=== PATIENT | male | born 1965 | race Caucasian/White ===

== ENCOUNTER → 2021-08-24 15:51 | Outpatient (BNVA) | payer OTHER, SELFPAY | PROVIDERS: Family Provider Internal Medicine; PCP Internal Medicine; Visit Provider Specialist | DX: M25.511 Pain in right shoulder (principal); M75.31 Calcific tendinitis of right shoulder | CPT/HCPCS: 73030 ==

== ENCOUNTER → 2021-09-01 09:43 | Outpatient (BNVA) | payer OTHER, SELFPAY | PROVIDERS: Family Provider Internal Medicine; PCP Internal Medicine; Visit Provider Orthopaedic Surgery | DX: M54.50 Low back pain, unspecified (principal) | CPT/HCPCS: 72110 ==

== ENCOUNTER → 2021-10-27 09:08 | Outpatient (BNVA) | payer OTHER, SELFPAY | PROVIDERS: Family Provider Internal Medicine; PCP Family Medicine; Referring Provider Orthopaedic Surgery; Visit Provider Anesthesiology Pain Medicine | DX: G89.29 Other chronic pain (principal); M48.062 Spinal stenosis, lumbar region with neurogenic claudication; M51.36 Other intervertebral disc degeneration, lumbar region; M47.816 Spondylosis without myelopathy or radiculopathy, lumbar region; M79.604 Pain in right leg; M79.605 Pain in left leg; Z98.890 Other specified postprocedural states; Z87.19 Personal history of other diseases of the digestive system; F17.290 Nicotine dependence, other tobacco product, uncomplicated | CPT/HCPCS: 99205 ==

== ENCOUNTER → 2021-11-14 12:56 | Outpatient (BNVA) | payer OTHER, SELFPAY | PROVIDERS: Family Provider Internal Medicine; PCP Family Medicine; Visit Provider Anesthesiology Pain Medicine | DX: G89.29 Other chronic pain (principal); F17.210 Nicotine dependence, cigarettes, uncomplicated; M47.816 Spondylosis without myelopathy or radiculopathy, lumbar region | CPT/HCPCS: 64493; 64494; 64495; J3490 ==

== ENCOUNTER → 2021-11-28 09:37 | Outpatient (BNVA) | payer OTHER, SELFPAY | PROVIDERS: Family Provider Internal Medicine; PCP Family Medicine; Visit Provider Anesthesiology Pain Medicine | DX: G89.29 Other chronic pain (principal); M48.062 Spinal stenosis, lumbar region with neurogenic claudication; M47.816 Spondylosis without myelopathy or radiculopathy, lumbar region; M51.36 Other intervertebral disc degeneration, lumbar region; M79.604 Pain in right leg; M79.605 Pain in left leg; Z98.890 Other specified postprocedural states; Z87.19 Personal history of other diseases of the digestive system; F17.290 Nicotine dependence, other tobacco product, uncomplicated | CPT/HCPCS: 99214 ==

== ENCOUNTER → 2021-12-05 13:55 | Outpatient (BNVA) | payer OTHER, SELFPAY | PROVIDERS: Family Provider Internal Medicine; PCP Family Medicine; Visit Provider Anesthesiology Pain Medicine | DX: G89.29 Other chronic pain (principal); M47.816 Spondylosis without myelopathy or radiculopathy, lumbar region | CPT/HCPCS: 64635; 64636; J1030 ==

== ENCOUNTER → 2021-12-15 11:41 | Outpatient (BNVA) | payer OTHER, SELFPAY | PROVIDERS: Family Provider Internal Medicine; PCP Family Medicine; Visit Provider Specialist | DX: M75.51 Bursitis of right shoulder (principal); Z71.89 Other specified counseling; M25.511 Pain in right shoulder; G89.29 Other chronic pain; F17.210 Nicotine dependence, cigarettes, uncomplicated | CPT/HCPCS: 20610; J1100; J2795; J3301 ==

== ENCOUNTER → 2021-12-19 14:55 | Outpatient (BNVA) | payer OTHER, SELFPAY | PROVIDERS: Family Provider Internal Medicine; PCP Family Medicine; Visit Provider Anesthesiology Pain Medicine | DX: G89.29 Other chronic pain (principal); M48.062 Spinal stenosis, lumbar region with neurogenic claudication; M47.816 Spondylosis without myelopathy or radiculopathy, lumbar region; M51.36 Other intervertebral disc degeneration, lumbar region; M79.604 Pain in right leg; M79.605 Pain in left leg; F17.290 Nicotine dependence, other tobacco product, uncomplicated; Z98.890 Other specified postprocedural states; Z87.19 Personal history of other diseases of the digestive system | CPT/HCPCS: 99213 ==

== ENCOUNTER → 2022-04-06 11:02 | Outpatient (BNVA) | payer OTHER, SELFPAY | PROVIDERS: Family Provider Internal Medicine; PCP Family Medicine; Visit Provider Specialist | DX: M75.51 Bursitis of right shoulder (principal); Z71.89 Other specified counseling | CPT/HCPCS: 20610; J1100; J2795; J3301 ==

== ENCOUNTER 2022-06-06 06:00 | Outpatient (RCR) | payer OTHER, SELFPAY | END 2022-06-26 23:59 | disposition home or self-care (01) | LOC: SOT 06:00 | PROVIDERS: Family Provider Internal Medicine; PCP Family Medicine; Visit Provider Family Medicine | DX: M79.645 Pain in left finger(s) (principal) | CPT/HCPCS: 97166 ==

== ENCOUNTER 2022-06-06 06:00 | Outpatient (RCR) | payer OTHER, SELFPAY | END 2022-06-26 23:59 | disposition home or self-care (01) | LOC: SPT 06:00 | PROVIDERS: Family Provider Internal Medicine; PCP Family Medicine; Visit Provider Family Medicine | DX: M25.542 Pain in joints of left hand (principal) | CPT/HCPCS: 97110; 97162 ==

== ENCOUNTER → 2022-06-19 09:54 | Outpatient (BNVA) | payer OTHER, SELFPAY | PROVIDERS: Family Provider Internal Medicine; PCP Family Medicine; Visit Provider Anesthesiology Pain Medicine | DX: G89.29 Other chronic pain (principal); M48.062 Spinal stenosis, lumbar region with neurogenic claudication; M47.816 Spondylosis without myelopathy or radiculopathy, lumbar region; M51.36 Other intervertebral disc degeneration, lumbar region; M79.604 Pain in right leg; M79.605 Pain in left leg; Z98.890 Other specified postprocedural states; Z87.19 Personal history of other diseases of the digestive system; F17.290 Nicotine dependence, other tobacco product, uncomplicated | CPT/HCPCS: 99214 ==

== ENCOUNTER → 2022-07-06 09:40 | Outpatient (BNVA) | payer OTHER, SELFPAY | PROVIDERS: Family Provider Internal Medicine; PCP Family Medicine; Visit Provider Specialist | DX: M75.51 Bursitis of right shoulder (principal); Z71.89 Other specified counseling | CPT/HCPCS: 20610; J1100; J2795; J3301 ==

== ENCOUNTER → 2022-07-11 14:57 | Outpatient (BNVA) | payer OTHER, SELFPAY | PROVIDERS: Family Provider Internal Medicine; PCP Family Medicine; Visit Provider Anesthesiology Pain Medicine | DX: G89.29 Other chronic pain (principal); M47.816 Spondylosis without myelopathy or radiculopathy, lumbar region | CPT/HCPCS: 64493; 64494; 64495; J1040; J3490 ==

== ENCOUNTER 2022-07-21 10:41 | Emergency (ER) | payer OTHER, SELFPAY ==
[2022-07-21 11:04] VITALS: BP 120/77; PULSE 81; RESP 16; TEMP 36.4; O2SAT 97
--- NOTE | 2022-07-21 11:09 | ECG_ITS ---
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 Measurements Intervals [place] Rate: 78 P: 71 [place]: 158 QRS: 48 QRSD: 93 T: 66 QT: 361 QTc: 413 Interpretive Statements SINUS RHYTHM Compared to ECG 10/29/2018 09:50:04 No significant changes Electronically Signed On 07-22-2022 11:06:25 BEVEL OPERATOR by Supa Childers M.D. [email or web address]/store/[id number] f
[2022-07-21 11:26] LABS: Basophils # 0.1 10^3/uL (0.0-0.1); Basophils % 0.5 %; Eosinophils # 0.1 10^3/uL (0.0-0.8); Eosinophils % 1.1 %; Hematocrit 44.6 % (42.0-52.0); Hemoglobin 15.2 g/dL (11.7-16.6); Lymphocytes # 2.3 10^3/uL (0.8-4.8); Mean Corpuscular HGB Conc 34.1 g/dL (30.0-36.0); Mean Corpuscular Hemoglobin 32.4 pg (28.0-34.0); Mean Corpuscular Volume 95.1 fl (80-94); Mean Platelet Volume 9.5 fL (7.4-10.4); Monocytes % 8.1 %; Neutrophils # 9.26 10^3/uL (1.8-7.7); Nucleated Red Blood Cells % 0 %; Platelet Count 267 10^3/cmm (130-400); Red Blood Count 4.69 10^6/uL (4.1-5.3); Red Cell Distribution Width 12.7 % (12.1-15.1); White Blood Count 12.9 10^3/uL (4.0-10.0)
[2022-07-21 11:43] LABS: Alanine Aminotransferase 23 U/L (0-41); Albumin Level 4.1 g/dL (3.5-5.2); Alkaline Phosphatase 82 U/L (40-130); Anion Gap 13.1 (5-19); Aspartate Amino Transferase 19 U/L (0-40); Blood Urea Nitrogen 20 mg/dL (6-20); Calcium 9.3 mg/dL (8.5-10.5); Carbon Dioxide 26 mmol/L (22-29); Chloride 104 mmol/L (98-107); Globulin 2.7 g/dL (1.3-4.6); Glomerular Filtration Rate 86.4 mL/min (90-130); Glucose 88 mg/dL (65-115); Osmolality Calculated 290 mOsm/kg (285-295); Potassium 4.1 mmol/L (3.5-5.1); Sodium 139 mmol/L (136-145); Total Bilirubin 0.4 mg/dL (0.15-1.2); Total Protein 6.8 g/dL (6.6-8.7)
--- NOTE | 2022-07-21 12:28 | XR_ITS ---
WS: [id number] PORTABLE CHEST HISTORY: dyspnea/cough COMPARISON: 10/29/2018 Lungs are clear and well expanded. No pleural effusion or pneumothorax. Cardiac size: Normal. Mediastinum/Aorta: Normal mediastinum. No osseous abnormality seen. XR/XR chest 1V portable [id number] IMPRESSION: Unremarkable portable chest.
--- NOTE | 2022-07-21 12:34 | W.ED.CHESTPA ---
HPI - Chest Pain General: Chief Complaint: Chest Pain Stated Complaint: chest pain Time Seen by Provider: 07/21/22 11:49 Source: patient Mode of arrival: ambulatory History of Present Illness: 57-year-old male presents emergency room with complaint of substernal chest pain radiating to his back at most it was a 2/10. No associated shortness of breath is not previously had episodes he has not noticed anything that exacerbates or relieves. No recent illness cough cold fever sweats chills or shortness of breath. Denies any abdominal pain dysuria urgency or frequency. No fever. The time I seen the patient he said all the symptoms have resolved. No known history of coronary artery disease. MD complaint: chest discomfort Onset (ago): minute(s) Timing of current episode: episodic Prior episodes: No Onset: during rest Pain location: left chest Pain radiation: back Severity: mild Quality: tightness Relieving factors: nothing Exacerbating factors: nothing Associated symptoms: Deny abdominal pain, diaphoresis, dyspnea, fever(s), leg edema, nausea, palpitations, sense of impending doom, syncope or vomiting Review of Systems Const: Denies: fever(s), chills or diaphoresis ENMT: Denies: throat pain, ear or mastoid pain, nasal discharge or nasal congestion Card: Reports: chest pain; Denies: palpitations, irregular heart rhythm, edema, swelling of feet/ankles, syncope or orthopnea Resp: Denies: dyspnea GI: Denies: abdominal pain, nausea or vomiting : Denies: flank pain, dysuria, urinary frequency or urinary urgency Skin/Breast: Denies: rash or pruritus PFSH ED PFSH: Medical History Chronic back pain Chronic right shoulder pain Hypertension Lumbar stenosis with neurogenic claudication Social History Smoking and tobacco status: current some day smoker Alcohol intake: never History of recent travel: No Physical Exam Const: GENERAL APPEARANCE: cooperative and comfortable ORIENTATION/CONSCIOUSNESS: Yes awake, Yes oriented to person, Yes oriented to place and Yes oriented to time HENMT: COMMON NORMALS: normocephalic, atraumatic and hearing grossly normal bilaterally HEAD & SCALP: normocephalic and atraumatic Resp: COMMON NORMALS: normal respiratory effort, No retractions, No use of accessory muscles and clear to auscultation bilaterally AUSCULTATION: clear to auscultation bilaterally Cardio: COMMON NORMALS: regular rate, regular rhythm and No murmurs present (Cardio) RATE: regular rate RHYTHM: regular rhythm GI: COMMON NORMALS: Soft to palpation and No hepatosplenomegaly present AUSCULTATION: Yes normoactive bowel sounds PALPATION: Yes Soft to palpation, No Tenderness to palpation present (GI), No Guarding due to palpation present (GI) and Yes No hepatosplenomegaly present Extremity: COMMON NORMALS: normal to inspection, capillary refill normal, no clubbing, cyanosis or edema, no calf tenderness and no pedal edema Neuro: SENSORIUM/ORIENTATION: Yes oriented to person, Yes oriented to place and Yes oriented to time Skin: COMMON NORMALS: no rashes or lesions noted GENERAL SKIN EXAM: no rashes or lesions noted Course Vital Signs: Vital signs: Vital Signs Temperature 97.5 F L 07/21/22 11:04 Pulse Rate 92 07/21/22 15:30 Respiratory Rate 14 07/21/22 15:30 Blood Pressure 117/94 07/21/22 15:30 Pulse Oximetry 98 07/21/22 15:30 Oxygen Delivery Me thod 07/21/22 15:30 MDM - Chest Pain Medical Decision Making No acute changes on EKG. Troponin delta is negative. Patient vies continue lisinopril check with thiazide start baby aspirin daily and will set up outpatient Lexiscan sestamibi stress test. Return if is further chest discomfort. Medical Records I reviewed the patient's medical records. Lab Data I reviewed the patient's lab results. 07/21/22 11:23 07/21/22 11:23 Radiology Impressions Chest X-Ray 07/21/22 12:28 IMPRESSION: Unremarkable portable chest. Laboratory Results WBC 12.9 10^3/uL (4.0-10.0) H 07/21/22 11: RBC 4.69 10^6/uL (4.1-5.3) 07/21/22 11:23 Hgb 15.2 g/dL (11.7-16.6) 07/21/22 11: Hct 44.6 % (42.0-52.0) 07/21/22 11:23 MCV 95.1 fl (80-94) H 07/21/22 11:23 MCH 32.4 pg (28.0-34.0) 07/21/22 11:23 MCHC 34.1 g/dL (30.0-36.0) 07/21/22 11:23 RDW 12.7 % (12.1-15.1) 07/21/22 11:23 Plt Count 267 10^3/cmm (130-400) 07/21/22 11:23 MPV 9.5 fL (7.4-10.4) 07/21/22 11:23 Neut % (Auto) 72.0 % 07/21/22 11:23 Lymph % (Auto) 18.0 % 07/21/22 11:23 [place] % (Auto) 8.1 % 07/21/22 11:23 Eos % (Auto) 1.1 % 07/21/22 11:23 Baso % (Auto) 0.5 % 07/21/22 11:23 Neut # (Auto) 9.26 10^3/uL (1.8-7.7) H 07/21/22 11:23 Lymph # (Auto) 2.3 10^3/uL (0.8-4.8) 07/21/22 11:23 [place] # (Auto) 1.0 10^3/uL (0.2-0.9) H 07/21/22 11:23 Eos # (Auto) 0.1 10^3/uL (0.0-0.8) 07/21/22 11:23 Baso # (Auto) 0.1 10^3/uL (0.0-0.1) 07/21/22 11:23 Nucleated RBC % (auto) 0 % 07/21/22 11:23 Nucleated RBCs # 0.0 /100WBC 07/21/22 11:23 Sodium 139 mmol/L (136-145) 07/21/22 11:23 Potassium 4.1 mmol/L (3.5-5.1) 07/21/22 11:23 Chloride 104 mmol/L (98-107) 07/21/22 11:23 Carbon Dioxide 26 mmol/L (22-29) 07/21/22 11:23 Anion Gap 13.1 (5-19) 07/21/22 11:23 BUN 20 mg/dL (6-20) 07/21/22 11:23 Creatinine 0.9 mg/dL (0.7-1.2) 07/21/22 11:23 GFR Calculation 86.4 mL/min (90-130) L 07/21/22 11:23 Glucose 88 mg/dL (65-115) 07/21/22 11:23 Calculated Osmolality 290 mOsm/kg (285-295) 07/21/22 11:23 Calcium 9.3 mg/dL (8.5-10.5) 07/21/22 11:23 Total Bilirubin 0.4 mg/dL (0.15-1.2) 07/21/22 11:23 AST 19 U/L (0-40) 07/21/22 11:23 ALT 23 U/L (0-41) 07/21/22 11:23 Alkaline Phosphatase 82 U/L (40-130) 07/21/22 11:23 Troponin T Baseline 9 ng/L (0-15) 07/21/22 11:27 Troponin T 120 Minute 8.15 ng/L (0-15) 07/21/22 14:15 Delta Troponin T -0.85 ABS# (0-10) L 07/21/22 14:15 Total Protein 6.8 g/dL (6.6-8.7) 07/21/22 11:23 Albumin 4.1 g/dL (3.5-5.2) 07/21/22 11:23 Globulin 2.7 g/dL (1.3-4.6) 07/21/22 11:23 Discharge Plan Discharge Patient Disposition: Home Clinical Impression: Atypical chest pain Condition: Stable Prescriptions: New aspirin 81 mg tablet,delayed release (DR/EC) 81 mg PO DAILY Qty: 30 0RF No Action lisinopril-hydrochlorothiazide 10-12.5 mg tablet 1 tab PO DAILY sildenafil 50 mg tablet 50 mg PO DAILY PRN (Reason: Erectile Dysfunction) Rx Instructions: administer 30 minutes to 4 hours before activity Discharge Orders: Discharge ED (Routine); Ordered 07/21/22 Ordered By: Tomas Greer Referrals: Ema Sutton MD [Primary Care Provider] - Discharge Diet: Usual diet Discharge Activity: Resume usual activity Patient Instructions: Opioid Safety, Pain Management Activity Restrictions/Additional Instructions: You were seen today for chest pain. Your EKG and cardiac enzymes were negative. Case management will call to set up a stress test as an outpatient in the meantime would advise you take baby aspirin daily return if you have further problems. Coding Level of Care Code ED Skull Grinder for Eddie Fwd Exam Detailed
[2022-07-21] MEDS: aspirin 81 mg Chew Tablet 324 MG PO (12:37)
[2022-07-21 12:59] LABS: Troponin(5th) Baseline 9 ng/L (0-15)
--- NOTE | 2022-07-21 13:10 | PC.PHAR ---
[facility] CLOS[facility]- PT WAS ABLE TO VERIFY HOME MEDICATIONS
[2022-07-21 13:57] VITALS: BP 107/78; PULSE 84; RESP 15; O2SAT 98
--- NOTE | 2022-07-21 14:26 | ECG_ITS ---
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 Measurements Intervals [place] Rate: 92 P: 71 [place]: 159 QRS: 69 QRSD: 99 T: 68 QT: 363 QTc: 449 Interpretive Statements SINUS RHYTHM Compared to ECG 07/21/2022 11:09:25 No significant changes Electronically Signed On 07-22-2022 11:10:16 WELL SERVICE DERRICK WORKER by Supa Childers M.D. [email or web address] [email or web address] olive branch hospitalRegional Diagnostic Laboratoriespromedica flower [facility].[employer]/store/OM/[id number]
[2022-07-21 14:51] LABS: Troponin 5 2HR 8.15 ng/L (0-15)
[2022-07-21 14:56] LABS: Troponin 5 2HR Delta -0.85 ABS# (0-10)
[2022-07-21 15:30] VITALS: BP 117/94; PULSE 92; RESP 14; O2SAT 98
--- NOTE | 2022-07-26 07:17 | DCPLANNER ---
Addendum entered by Britt Reich 08/03/22 16:12: catering manager received the following message from the heart care clinic regarding follow up appointment: Spoke with patient and patient stated he did not want to be seen. Thank you! Original Note: Case rosalva had message to schedule an outpatient stress test for patient. The patient has [facility] insurance, so the stress test cannot be ordered from the ER. catering manager sent patients information to the front office staff at [facility] for a follow up appointment to be scheduled. Patients information will be printed and reviewed. Clinic will call patient with appointment information. catering manager will send patients information to Kate with [facility], for the authorization process can be started.
== END 2022-07-21 15:25 | disposition home or self-care (01) ==
PROVIDERS: Physician Assistant; Emergency Provider Family Medicine; PCP Family Medicine
DX: R07.89 Other chest pain (principal); I10 Essential (primary) hypertension
CPT/HCPCS: 36415; 71045; 80053; 84484; 85025; 93005; 99285

== ENCOUNTER 2022-08-08 14:15 | Emergency (ER) | payer OTHER, SELFPAY ==
[2022-08-08 14:16] VITALS: BP 151/100; PULSE 106; RESP 17; TEMP 36.8; O2SAT 95; BMI 31.6
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
[2022-08-08] MEDS: ketorolac 30 mg/mL INJ IVP (15:38)
[2022-08-08 15:44] LABS: Basophils # 0.1 10^3/uL (0.0-0.1); Basophils % 0.6 %; Eosinophils # 0.2 10^3/uL (0.0-0.8); Eosinophils % 1.9 %; Hematocrit 44.7 % (42.0-52.0); Hemoglobin 15.4 g/dL (11.7-16.6); Lymphocytes # 2.3 10^3/uL (0.8-4.8); Lymphocytes % 23.9 %; Mean Corpuscular HGB Conc 34.5 g/dL (30.0-36.0); Mean Corpuscular Hemoglobin 32.6 pg (28.0-34.0); Mean Corpuscular Volume 94.5 fl (80-94); Mean Platelet Volume 9.8 fL (7.4-10.4); Monocytes # 0.7 10^3/uL (0.2-0.9); Monocytes % 6.8 %; Neutrophils # 6.32 10^3/uL (1.8-7.7); Neutrophils % 66.4 %; Nucleated Red Blood Cells % 0 %; Platelet Count 262 10^3/cmm (130-400); Red Blood Count 4.73 10^6/uL (4.1-5.3); White Blood Count 9.5 10^3/uL (4.0-10.0)
[2022-08-08 15:47] VITALS: BP 122/83; PULSE 91; O2SAT 97
[2022-08-08 16:09] LABS: Alanine Aminotransferase 24 U/L (0-41); Albumin Level 4.4 g/dL (3.5-5.2); Alkaline Phosphatase 87 U/L (40-130); Anion Gap 15.1 (5-19); Blood Urea Nitrogen 17 mg/dL (6-20); Calcium 9.5 mg/dL (8.5-10.5); Carbon Dioxide 26 mmol/L (22-29); Chloride 105 mmol/L (98-107); Globulin 2.7 g/dL (1.3-4.6); Glomerular Filtration Rate 86.4 mL/min (90-130); Glucose 98 mg/dL (65-115); Osmolality Calculated 296 mOsm/kg (285-295); Potassium 4.1 mmol/L (3.5-5.1); Sodium 142 mmol/L (136-145); Total Bilirubin 0.2 mg/dL (0.15-1.2); Total Protein 7.1 g/dL (6.6-8.7)
[2022-08-08 16:17] LABS: Aspartate Amino Transferase 18 U/L (0-40)
== END 2022-08-08 16:52 | disposition home or self-care (01) ==
PROVIDERS: Emergency Provider Family Medicine; PCP Family Medicine
DX: Z04.1 Encounter for examination and observation following transport accident (principal); I10 Essential (primary) hypertension; F17.210 Nicotine dependence, cigarettes, uncomplicated; V89.2XXA Person injured in unspecified motor-vehicle accident, traffic, initial encounter
CPT/HCPCS: 70450; 72040; 80053; 85025; 96374; 99285; J1885

== ENCOUNTER → 2022-10-11 15:00 | Outpatient (BNVA) | payer OTHER, SELFPAY | PROVIDERS: PCP Family Medicine; Visit Provider Specialist | DX: M75.51 Bursitis of right shoulder (principal) | CPT/HCPCS: 20610; J1100; J2795; J3301 ==

== ENCOUNTER 2022-11-17 10:07 | Emergency (ER) | payer OTHER, SELFPAY ==
[2022-11-17 10:16] VITALS: BMI 33.9
[2022-11-17 10:17] VITALS: BP 134/87; PULSE 88; RESP 18; O2SAT 96
--- NOTE | 2022-11-17 10:31 | ECG_ITS ---
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 Measurements Intervals [place] Rate: 74 P: 72 MD: 176 QRS: 43 QRSD: 97 T: 63 QT: 366 QTc: 406 Interpretive Statements SINUS RHYTHM WITH SINUS ARRHYTHMIA INCOMPLETE RIGHT BUNDLE BRANCH BLOCK [90+ ms QRS DURATION, TERMINAL R IN V1/V2, 40+ ms S IN I/aVL/V4/V5/V6] Compared to ECG 07/21/2022 14:26:11 Incomplete right bundle-branch block now present Electronically Signed On 11-17-2022 23:02:03 CDT by Enedelia Hamilton M.D. [email or web address] [email or web address] Corporation of [email or web address] pickerington [facility].[employer]/store/OM/[id number]
--- NOTE | 2022-11-17 11:39 | W.ED.ANXIETY ---
HPI - Anxiety General: Chief Complaint: Anxiety Stated Complaint: Anxiety, irregular BP Time Seen by Provider: 11/17/22 10:39 History of Present Illness: Patient is a 57-year-old male who comes to the ED with chest pressure/tightness. Patient was referred over here to the ED by [facility]. Symptoms started yesterday evening while sitting, but was in a mental health therapy session. He started developing chest tightness and chest pressure, shortness of breath and palpitations. He states he has had these symptoms before but not frequently. Patient endorses having a lot of stress and anxiety going on in his life currently. Symptoms continued through the night and into this morning. [facility] ED but gave him a dose of 325 mg of aspirin before he left. Here in the ED patient says he still feels a little bit of the chest tightness and pressure but denies any shortness of breath or heart palpitations. Patient is not on any as needed anxiety meds. Associated symptoms: Reports chest pain and palpitations; Deny chills, fever(s), headache(s), nausea or vomiting Review of Systems Const: Denies: fever(s), chills or fatigue Eyes: Denies: change in vision or eye discomfort ENMT: Denies: throat pain, odynophagia, nasal discharge or nasal congestion Card: Reports: chest pain and palpitations; Denies: edema, swelling of feet/ankles, dyspnea on exertion or orthopnea Resp: Reports: dyspnea; Denies: productive cough or non-productive cough GI: Denies: abdominal pain, nausea, vomiting, diarrhea, constipation or hematochezia : Denies: flank pain, difficulty urinating, dysuria or hematuria Musc: Denies: neck pain, back pain or extremity swelling Skin/Breast: Denies: rash or new lesions Neuro: Denies: headache(s), numbness in extremities or weakness in extremities Psych: Reports: anxiety PFSH ED PFSH: Medical History Chronic back pain Chronic right shoulder pain Hypertension Lumbar stenosis with neurogenic claudication Social History Smoking and tobacco status: current some day smoker Alcohol intake: never Physical Exam Const: COMMON NORMALS: patient oriented x3 HENMT: COMMON NORMALS: normocephalic HEAD & SCALP: normocephalic MOUTH: Normal oral and palatal mucosa present THROAT: posterior oropharynx normal and uvula midline Neck/C-Spine: COMMON NORMALS: supple GENERAL: Yes normal visual inspection Resp: COMMON NORMALS: normal respiratory effort, No retractions, No use of accessory muscles and clear to auscultation bilaterally AUSCULTATION: clear to auscultation bilaterally Cardio: COMMON NORMALS: regular rate, regular rhythm, S1 normal heart sound present, S2 normal heart sound present, No gallops present (Cardio), No clicks present (Cardio), No murmurs present (Cardio) and Peripheral pulses 2+ throughout RATE: regular rate RHYTHM: regular rhythm HEART SOUNDS: S1 normal heart sound present and S2 normal heart sound present PERIPHERAL PULSES: Peripheral pulses 2+ throughout GI: COMMON NORMALS: Normal to inspection, nondistended, normoactive bowel sounds present, Soft to palpation, non-tender and no masses PALPATION: Yes Soft to palpation : COMMON NORMALS: Yes no CVA tenderness BLADDER/KIDNEY EXAM: Yes no CVA tenderness Back/Pelvis: COMMON NORMALS: no CVA tenderness Extremity: COMMON NORMALS: normal to inspection Neuro: COMMON NORMALS: patient oriented x3 GAIT: Yes Normal gait present Skin: GENERAL SKIN EXAM: dry skin Course Vital Signs: Vital signs: Vital Signs Pulse Rate 88 11/17/22 10:17 Respiratory Rate 18 11/17/22 10:17 Blood Pressure 134/87 11/17/22 10:17 Pulse Oximetry 96 11/17/22 10:17 Oxygen Delivery Me thod 11/17/22 10:17 MDM - Anxiety Medical Decision Making Patient is a 57-year-old male who comes to the ED with chest pressure/tightness. Patient was referred over here to the ED by [facility]. Symptoms started yesterday evening while sitting, but was in a mental health therapy session. He started developing chest tightness and chest pressure, shortness of breath and palpitations. He states he has had these symptoms before but not frequently. Patient endorses having a lot of stress and anxiety going on in his life currently. Symptoms continued through the night and into this morning. [facility] come here to the ED but gave him a dose of 325 mg of aspirin before he left. Here in the ED patient says he still feels a little bit of the chest tightness and pressure but denies any shortness of breath or heart palpitations. Patient is not on any as needed anxiety meds. Vitals are stable. Exam patient is benign. Labs are unremarkable. Troponin negative and EKG showed no acute findings. Patient likely is having acute anxiety that is causing his chest pain and shortness of breath. He was stable for discharge home and told to follow-up with his PCP within the next week for reevaluation. I offered to send patient home with some acute anxiety medications and he refused any. Return to ED precautions given. Patient understood and agreed with plan. Lab Data I reviewed the patient's lab results. 11/17/22 12:05 11/17/22 12:05 Laboratory Results WBC 8.9 10^3/uL (4.0-10.0) 11/17/22 12:05 RBC 4.59 10^6/uL (4.1-5.3) 11/17/22 12:05 Hgb 14.5 g/dL (11.7-16.6) 11/17/22 12:05 Hct 44.2 % (42.0-52.0) 11/17/22 12:05 MCV 96.3 fl (80-94) H 11/17/22 12:05 MCH 31.6 pg (28.0-34.0) 11/17/22 12:05 MCHC 32.8 g/dL (30.0-36.0) 11/17/22 12:05 RDW 12.6 % (12.1-15.1) 11/17/22 12:05 Plt Count 256 10^3/cmm (130-400) 11/17/22 12:05 MPV 9.8 fL (7.4-10.4) 11/17/22 12:05 Neut % (Auto) 63.9 % 11/17/22 12:05 Lymph % (Auto) 24.2 % 11/17/22 12:05 Tarrant % (Auto) 8.9 % 11/17/22 12:05 Eos % (Auto) 1.9 % 11/17/22 12:05 Baso % (Auto) 0.7 % 11/17/22 12:05 Neut # (Auto) 5.70 10^3/uL (1.8-7.7) 11/17/22 12:05 Lymph # (Auto) 2.2 10^3/uL (0.8-4.8) 11/17/22 12:05 Tarrant # (Auto) 0.8 10^3/uL (0.2-0.9) 11/17/22 12:05 Eos # (Auto) 0.2 10^3/uL (0.0-0.8) 11/17/22 12:05 Baso # (Auto) 0.1 10^3/uL (0.0-0.1) 11/17/22 12:05 Nucleated RBC % (auto) 0 % 11/17/22 12:05 Nucleated RBCs # 0.0 /100WBC 11/17/22 12:05 Sodium 141 mmol/L (136-145) 11/17/22 12:05 Potassium 4.5 mmol/L (3.5-5.1) 11/17/22 12:05 Chloride 106 mmol/L (98-107) 11/17/22 12:05 Carbon Dioxide 25 mmol/L (22-29) 11/17/22 12:05 Anion Gap 14.5 (5-19) 11/17/22 12:05 BUN 13 mg/dL (6-20) 11/17/22 12:05 Creatinine 0.8 mg/dL (0.7-1.2) 11/17/22 12:05 GFR Calculation 98.9 mL/min (90-130) 11/17/22 12:05 Glucose 77 mg/dL (65-115) 11/17/22 12:05 Calculated Osmolality 291 mOsm/kg (285-295) 11/17/22 12:05 Calcium 9.0 mg/dL (8.5-10.5) 11/17/22 12:05 Troponin T Baseline 8 ng/L (0-15) 11/17/22 12:05 EKG Data EKG 1: EKG interpretation date: 11/17/22 Interpretation: Normal sinus rhythm, 74 bpm, no ST segment elevation or depression seen. Discharge Plan Discharge Patient Disposition: Home Clinical Impression: Acute anxiety Condition: Stable Prescriptions: No Action metoprolol succinate 50 mg Tablet Extended Release 24 Hr 50 mg PO DAILY Discharge Orders: Discharge ED (Routine); Ordered 11/17/22 Ordered By: Tommie Rees Referrals: Ema Sutton MD [Primary Care Provider] - Discharge Diet: Regular Discharge Activity: Increase activity as tolerated Patient Instructions: Noncardiac Chest Pain (ED), Anxiety (ED) Activity Restrictions/Additional Instructions: Follow-up with medical provider as directed in the next 3 to 5 days for reevaluation. Continue taking all home medications as prescribed. Return to the ER or your medical provider if condition worsens. Please read and understand discharge instructions. Thank you for choosing [facility] for your healthcare needs today. Please realize this is an emergency room and that we are providing you with a medical screening exam and this may not be complete and all inclusive of all the testing and or work up that you may need to determine your ailment or severity of your illness. It is very important that you follow up as instructed or that you return to the Emergency Department should you have concerns or if your condition changes or worsens in any way. Coding Level of Care Code ED Tank Riveter for Eddie May
[2022-11-17 12:10] LABS: Basophils # 0.1 10^3/uL (0.0-0.1); Basophils % 0.7 %; Eosinophils # 0.2 10^3/uL (0.0-0.8); Eosinophils % 1.9 %; Hematocrit 44.2 % (42.0-52.0); Hemoglobin 14.5 g/dL (11.7-16.6); Lymphocytes # 2.2 10^3/uL (0.8-4.8); Lymphocytes % 24.2 %; Mean Corpuscular HGB Conc 32.8 g/dL (30.0-36.0); Mean Corpuscular Hemoglobin 31.6 pg (28.0-34.0); Mean Corpuscular Volume 96.3 fl (80-94); Mean Platelet Volume 9.8 fL (7.4-10.4); Monocytes # 0.8 10^3/uL (0.2-0.9); Monocytes % 8.9 %; Neutrophils % 63.9 %; Nucleated Red Blood Cells % 0 %; Platelet Count 256 10^3/cmm (130-400); Red Blood Count 4.59 10^6/uL (4.1-5.3); Red Cell Distribution Width 12.6 % (12.1-15.1); White Blood Count 8.9 10^3/uL (4.0-10.0)
[2022-11-17 12:30] LABS: Troponin(5th) Baseline 8 ng/L (0-15)
[2022-11-17 12:55] LABS: Blood Urea Nitrogen 13 mg/dL (6-20); Carbon Dioxide 25 mmol/L (22-29); Chloride 106 mmol/L (98-107); Glomerular Filtration Rate 98.9 mL/min (90-130); Glucose 77 mg/dL (65-115); Osmolality Calculated 291 mOsm/kg (285-295); Sodium 141 mmol/L (136-145)
[2022-11-17 13:06] LABS: Anion Gap 14.5 (5-19); Potassium 4.5 mmol/L (3.5-5.1)
== END 2022-11-17 12:48 | disposition home or self-care (01) ==
PROVIDERS: Emergency Provider Physician Assistant; PCP Family Medicine
DX: F41.9 Anxiety disorder, unspecified (principal); I10 Essential (primary) hypertension; F17.200 Nicotine dependence, unspecified, uncomplicated
CPT/HCPCS: 80048; 84484; 85025; 93005; 99284

== ENCOUNTER 2022-12-05 06:30 | Outpatient (CLI) | payer OTHER, SELFPAY ==
--- NOTE | 2022-12-05 | US_ITS ---
WS: [id number] RENAL ULTRASOUND REASON FOR EXAM: LABILE BP COMPARISON: None available. ORDER DATE: 12/05/2022 7:16 AM TECHNIQUE: Grayscale and Doppler ultrasound examination of the kidneys. FINDINGS: Right kidney: Right kidney measures 11.4 cm x 6.1 cm x 5.7 cm. Cortical width 17 mm Left kidney: Left kidney measures 12.0 cm x 5.1 cm x 7.1 cm. Cortical width 16 mm Duplex vascular imaging demonstrated satisfactory renal blood flow bilaterally. The bladder was decompressed but there is suggestion of bladder wall thickening Limited imaging the prostate demonstrates no specific abnormality. US/US renal BI* [id number] IMPRESSION: Unremarkable study.
--- NOTE | 2022-12-05 | USCV_ITS ---
Jc Forte Age: 57 Gender: M : 1965 Exam Date: 12/05/2022 07:19 Ordering Phys: Ema Sutton MD Technologist: Omar Wise Exam Location: [facility] [place] Indication: Labile BP Aortic Velocity @ SMA (cm/s) 91.5 RIGHT KIDNEY LEFT KIDNEY Velocity (cm/s) Velocity (cm/s) Sys/Hassan Sys/Hassan Resistive Index Resistive Index 46.8 / 16.4 0.69 Proximal Renal Artery 48.4 / 18.8 0.61 64.5 / 20.7 0.73 Mid Renal Artery 68.0 / 19.4 0.71 52.6 / 35.4 0.33 Distal Renal Artery 74.3 / 26.4 0.64 40.5 / 17.5 0.56 Hilar 36.6 / 14.7 0.59 28.0 / 10.2 0.63 Upper Pole 44.6 / 19.0 0.57 20.6 / 6.3 0.70 Mid Pole 28.9 / 8.9 0.69 16.7 / 7.5 0.55 Lower Pole 15.3 / 7.7 0.50 1.00 Renal Aortic Ratio 0.81 Accleration Index (cm/sec2) 236.00 Hilar 257.00 178.00 Upper Pole 243.00 126.00 Mid Pole 89.00 104.00 Lower Pole 83.00 11.4 Kidney Length (mm) 12.0 FINDINGS Comparison: none. Normal size kidneys, no hydronephrosis. No evidence of abdominal aortic aneurysm. There is no evidence of hemodynamically significant right renal artery stenosis. There is no evidence of hemodynamically significant left renal artery stenosis. CONCLUSIONS No sonographic evidence of hemodynamically significant renal artery stenosis bilaterally. Dr. Beata Oliver DO (Electronically Signed) Final Date: 05 December 2022 12:56 S
== END 2022-12-05 06:31 | disposition home or self-care (01) ==
LOC: RAD 06:30
PROVIDERS: PCP Family Medicine; Visit Provider Family Medicine
DX: I10 Essential (primary) hypertension (principal)
CPT/HCPCS: 76770; 93975

== ENCOUNTER → 2022-12-12 14:56 | Outpatient (BNVA) | payer OTHER, SELFPAY | PROVIDERS: PCP Family Medicine; Visit Provider Internal Medicine Cardiovascular Disease | DX: R07.9 Chest pain, unspecified (principal); I10 Essential (primary) hypertension; F41.9 Anxiety disorder, unspecified; F17.210 Nicotine dependence, cigarettes, uncomplicated | CPT/HCPCS: 99204 ==

== ENCOUNTER → 2023-01-10 15:39 | Outpatient (BNVA) | payer OTHER, SELFPAY | PROVIDERS: PCP Family Medicine; Visit Provider Specialist | DX: M75.51 Bursitis of right shoulder (principal); Z71.89 Other specified counseling | CPT/HCPCS: 20610; J1100; J2795; J3301 ==

== ENCOUNTER 2023-01-23 12:31 | Outpatient (CLI) | payer OTHER, SELFPAY ==
[2023-01-23 13:00] VITALS: BMI 33.5
--- NOTE | 2023-01-23 13:05 | ECG_ITS ---
[facility] Test Date: 2023-01-23 Pat Name: Jc Forte Department: Room: Gender: Male Park Interpretive Ranger: : 1965 Requested By: Enedelia Hamilton Order Number: [id number] Tatianna MD: Monika Rocha M.D. Interpretive Statements NAME OF STUDY: TREADMILL STRESS ECHOCARDIOGRAM INDICATION: Chest Pain PROCEDURE: At the baseline, the patient's blood pressure was 128/67 mm Hg with a heart rate of 77 bpm oxygen saturation of 94%. The baseline electrocardiogram showed normal sinus rhythm, right axis deviation. Possible old anteroseptal infarct. The patient exercised for 5 minutes and 6 seconds on a standard Leonard protocol. Patient attained a maximum heart rate of 140 beats per minute(86% of the maximum predicted heart rate) with a blood pressure at the peak exercise of 162/56 mm Hg. The EKG at the peak exercise revealed sinus tachycardia with no significant ST-T wave changes. Patient did not have any chest pain or any significant EKG changes with the exercise During the recovery phase, there were no new changes. Blood pressure at the end of the recovery phase was 139/82 mm Hg with a heart rate of 89 beats per minute saturation of 95%. Echocardiographic pictures were taken at the baseline, immediately following the peak exercise and during the recovery phase. CONCLUSION: 1. Normal EKG response to treadmill exercise. 2. No exercise-induced chest pain or cardiac arrhythmia 3. Normal blood pressure normal response to exercise. 4. Good exercise tolerance, attained a maximum of 7 METs 5. Please see separate report for the echocardiographic response to exercise. Electronically Signed On 02-02-2023 14:10:11 CDT by Monika Rocha M.D. [email or web address]
--- NOTE | 2023-01-23 13:05 | USCV_ITS ---
Jc Forte Age: 57 Gender: M : 1965 Exam Date: 01/23/2023 13:24 Ordering Phys: Enedelia Hamilton MD ([email or web address]) Technologist: Deacon Becerra Exam Location: [facility] [place] Indication: cp Rhythm: Sinus Patient History: Cardiac Medications: Medications in past 24 hours: Contrast: Stress Results Protocol: Modified Leonard Total dose(mL): Exercise Duration (min:sec): 5:06 METS: 7 Resting HR: 75 Resting BP: 128 / 67 Peak HR: 140 Peak BP: 162 / 83 Max Predicted HR: 161 87 % Max Predicted HR Target HR: 137 Double Product: 92012 Stress Summary: The patient's target heart rate was achieved BP Response: Normal Reason for Termination: Maximal effort/unable to continue Cardiac Symptoms: None ECG Analysis Resting ECG: Stress ECG: Arrhythmia: MEASUREMENTS (Male/Female) Normal Values FINDINGS PROCEDURE: At the baseline, the patient's blood pressure was 128/67 mmHg with a heart rate of 75 bpm. The patient exercised for 8 minutes and 6 seconds on a standard Leonard protocol. Patient attained a maximum heart rate of 140 beats per minute(87% of the maximum predicted heart rate) with a blood pressure at the peak exercise of 162/83 mm Hg. During the recovery phase, there were no new changes. Echocardiographic pictures were taken at the baseline, immediately following the peak exercise and during the recovery phase. Baseline echocardiogram: Normal left ventricular size and systolic function with ejection fraction estimated at 55%. No regional wall motion abnormalities. Normal right ventricle size and systolic function. Normal left and right atrial size. No pericardial effusion. No intracardiac masses. Peak exercise echocardiogram: Normal augmentation of left ventricular systolic function with exercise. No new regional wall motion abnormalities. Recovery echocardiogram: Left ventricular systolic function normalizes. No regional wall motion abnormalities. CONCLUSIONS 1. This is a treadmill stress echocardiogram. 2. Fair exercise tolerance, attained a maximum of 7 METs. Double product of 22,680. 3. Normal blood pressure and heart rate response to exercise. 4. Normal echocardiographic response to exercise. 5. Normal EKG response to exercise. Please see separate report for the details of EKG portion of the study. Monika Rocha MD (Electronically Signed) Final Date: 02 February 2023 14:13 S
[2023-01-23 13:38] VITALS: BP 139/82; PULSE 87
== END 2023-01-23 12:32 | disposition home or self-care (01) ==
LOC: CDL 12:32
PROVIDERS: PCP Family Medicine; Visit Provider Internal Medicine Cardiovascular Disease
DX: R07.9 Chest pain, unspecified (principal)
CPT/HCPCS: 93017; 93350

== ENCOUNTER → 2023-03-29 08:57 | Outpatient (BNVA) | payer OTHER, SELFPAY | PROVIDERS: PCP Family Medicine; Referring Provider Family Medicine; Visit Provider Anesthesiology Pain Medicine | DX: M54.16 Radiculopathy, lumbar region (principal); G89.29 Other chronic pain; M48.062 Spinal stenosis, lumbar region with neurogenic claudication; M47.816 Spondylosis without myelopathy or radiculopathy, lumbar region; M51.36 Other intervertebral disc degeneration, lumbar region; Z98.890 Other specified postprocedural states; Z87.19 Personal history of other diseases of the digestive system | CPT/HCPCS: 99214 ==

== ENCOUNTER → 2023-04-11 15:44 | Outpatient (BNVA) | payer OTHER, SELFPAY | PROVIDERS: PCP Family Medicine; Visit Provider Specialist | DX: M75.51 Bursitis of right shoulder; M25.511 Pain in right shoulder; G89.29 Other chronic pain; Z71.89 Other specified counseling | CPT/HCPCS: 20610; J1100; J2795; J3301 ==

== ENCOUNTER 2023-05-14 13:39 | Outpatient (CLI) | payer OTHER, SELFPAY ==
--- NOTE | 2023-05-14 13:45 | MR_ITS ---
WS: [id number] MRI LUMBAR SPINE NONCONTRAST HISTORY: M54.16 - Radiculopathy, lumbar region COMPARISON: 03/11/2021 TECHNIQUE: Sagittal and axial multisequence imaging is submitted. C5-6 and C6-7 disc protrusions contact the ventral cervical cord. L4 anterolisthesis by 6 mm. No fractures or marrow edema. Mild disc base narrowing and desiccation at L5-S1. Conus terminates normally at L1-2 disc level. L1-L2: Mild facet joint arthritis. No high-grade stenosis. Very minimal facet arthritis. L2-L3: Mild annular disc bulging with a central annular fissure. Mild ligamentum flavum and facet art hritis. There is mild disc encroachment upon the subarticular recesses. Small amount of fluid in the RIGHT facet joint. L3-L4: Mild annular disc bulging with mild ligamentum flavum and facet arthritis. Mild encroachment u elliot the subarticular recesses. No high-grade stenosis. L4-L5: Diffuse annular disc bulging. Marked ligamentum flavum hypertrophy and facet arthritis. Fluid in the facet joints with mild widening of the facet joints. Severe central, bilateral subarticular re cess and moderate to severe foraminal stenosis. There is disc contacting the L4 and L5 nerve roots bi laterally. L5-S1: Mild diffuse annular disc bulging. Mild encroachment upon the ventral thecal sac and subarticu lar recesses. Moderate to severe bilateral foraminal stenosis. There is mild disc contact on the exit ing L5 nerve roots. RIGHT renal cyst 1.6 cm. IMPRESSION: 1. L4 grade 1 spondylolisthesis, 6 mm. 2. L4-5: Severe central, bilateral subarticular recess and moderate to severe foraminal stenosis. [place] nosis exacerbated by the L4 anterolisthesis. Disc contacts the L4 and L5 nerve roots. 3. L5-S1: Moderate to severe bilateral foraminal stenosis. 4. 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 Most significant at L4-5 and L5 -S1.
== END 2023-05-14 13:40 | disposition home or self-care (01) ==
PROVIDERS: PCP Family Medicine; Visit Provider Anesthesiology Pain Medicine
DX: M54.16 Radiculopathy, lumbar region (principal); M43.16 Spondylolisthesis, lumbar region; M48.07 Spinal stenosis, lumbosacral region; M47.817 Spondylosis without myelopathy or radiculopathy, lumbosacral region
CPT/HCPCS: 72148

== ENCOUNTER → 2023-05-23 15:10 | Outpatient (BNVA) | payer OTHER, SELFPAY | PROVIDERS: PCP Family Medicine; Visit Provider Specialist | DX: M25.551 Pain in right hip (principal) | CPT/HCPCS: 73502; 99213 ==

== ENCOUNTER 2023-06-20 15:59 | Outpatient (CLI) | payer OTHER, SELFPAY ==
--- NOTE | 2023-06-20 16:00 | MR_ITS ---
WS: [id number] EXAMINATION: MR hip RT wo con* [id number] ORDER DATE: 06/20/2023 5:09 PM COMPARISON: None. HISTORY: right hip pain CONTRAST: None. TECHNIQUE: Coronal STIR of the Pelvis. Coronal proton density, coronal T1, axial T2 fat sat, axial T1 , sagittal T2 fat sat, and sagittal T1 performed of the hip. FINDINGS: Moderate degenerative narrowing RIGHT hip. No acute fractures. No subchondral edema or avascular necr osis. No edema in the LEFT hip. RIGHT visualized pubic rami are normal in appearance. Trace soft tissue edema about the RIGHT greater trochanter can be seen with trochanteric bursitis. No fluid collections. Normal bone marrow signal i n the bony pelvis and sacrum. Mild degenerative changes at the pubic symphysis. Incidental small mau gn bone island or enchondroma RIGHT femoral head. No significant joint effusion. Mild degenerative arthritis sacroiliac joints. No inguinal lymphadenop athy. IMPRESSION: 1. Moderate degenerative narrowing RIGHT hip. No acute fractures. 2. No bone marrow edema or avascular necrosis. No significant joint effusion. 3. Trace soft tissue edema about the RIGHT greater trochanter can be seen with trochanteric bursitis . No fluid collections. 4. Normal bone marrow signal in the bony pelvis and sacrum.
== END 2023-06-20 16:00 | disposition home or self-care (01) ==
LOC: RAD 16:00
PROVIDERS: PCP Family Medicine; Visit Provider Specialist
DX: M16.11 Unilateral primary osteoarthritis, right hip (principal); M25.551 Pain in right hip
CPT/HCPCS: 73721

== ENCOUNTER → 2023-06-28 08:58 | Outpatient (BNVA) | payer OTHER, SELFPAY | PROVIDERS: PCP Family Medicine; Visit Provider Anesthesiology Pain Medicine | DX: G89.29 Other chronic pain; M48.062 Spinal stenosis, lumbar region with neurogenic claudication; F17.290 Nicotine dependence, other tobacco product, uncomplicated; M47.816 Spondylosis without myelopathy or radiculopathy, lumbar region; M51.36 Other intervertebral disc degeneration, lumbar region; Z98.890 Other specified postprocedural states; Z87.19 Personal history of other diseases of the digestive system; M43.16 Spondylolisthesis, lumbar region; M48.061 Spinal stenosis, lumbar region without neurogenic claudication | CPT/HCPCS: 99215 ==

== ENCOUNTER → 2023-07-05 14:56 | Outpatient (BNVA) | payer OTHER, SELFPAY | PROVIDERS: PCP Family Medicine; Visit Provider Anesthesiology Pain Medicine | DX: M54.16 Radiculopathy, lumbar region (principal); G89.29 Other chronic pain; M70.61 Trochanteric bursitis, right hip; M75.51 Bursitis of right shoulder; M25.551 Pain in right hip | CPT/HCPCS: 20610; 64483; 64484; 99214; J1100; J2795; J3301; J3490 ==

== ENCOUNTER → 2023-07-25 09:16 | Outpatient (BNVA) | payer OTHER, SELFPAY | PROVIDERS: PCP Family Medicine; Visit Provider Anesthesiology Pain Medicine | DX: G89.29 Other chronic pain; M70.61 Trochanteric bursitis, right hip; M75.51 Bursitis of right shoulder; M48.062 Spinal stenosis, lumbar region with neurogenic claudication; M47.816 Spondylosis without myelopathy or radiculopathy, lumbar region; M51.36 Other intervertebral disc degeneration, lumbar region; Z98.890 Other specified postprocedural states; Z87.19 Personal history of other diseases of the digestive system; M43.16 Spondylolisthesis, lumbar region; Y93.9 Activity, unspecified; Z71.89 Other specified counseling | CPT/HCPCS: 20610; 99214; J1100; J2795; J3301 ==

== ENCOUNTER → 2023-10-08 15:33 | Outpatient (BNVA) | payer OTHER, SELFPAY | PROVIDERS: PCP Family Medicine; Visit Provider Nurse Practitioner | DX: M75.51 Bursitis of right shoulder; M25.511 Pain in right shoulder; G89.29 Other chronic pain | CPT/HCPCS: 20610; 99213; J1100; J2795; J3301 ==

== ENCOUNTER 2023-10-31 12:49 | Outpatient (CLI) | payer OTHER, SELFPAY ==
--- NOTE | 2023-10-31 13:00 | MR_ITS ---
WS: [id number] MRI RIGHT SHOULDER HISTORY: shoulder pain COMPARISON: Radiographs 08/24/2021 TECHNIQUE: Multiplanar sequences of the shoulder joint are submitted. Moderate AC joint arthritis. Bone and soft tissue encroachment upon the myotendinous supraspinatus. S mall subchondral cysts in the acromion. Mild subacromial impingement. Biceps tendon is in normal posi tion. No os acromion. There is several low signal, ill-defined nodules in the soft tissues of the shoulder. The largest col lection measures 10 x 6 mm over the distal humeral head associated with the distal supraspinatus and subscapularis tendons consistent with calcific tendinitis. There is an additional 6 mm focus near the subscapularis tendon. No muscle atrophy or edema. Mild tendinopathy in the distal supraspinatus tendon. No full-thickness t ear. Infraspinatus and subscapularis tendons are normal. No labral tear. No joint effusion. IMPRESSION: 1. Moderate AC joint arthritis. 2. Mild tendinopathy distal supraspinatus but no tendon tears. 3. Calcific tendinitis. There are multiple calcific deposits closely associated with the distal supr aspinatus and the subscapularis tendons. 4. No muscle atrophy or edema.
== END 2023-10-31 12:50 | disposition home or self-care (01) ==
LOC: RAD 12:49
PROVIDERS: PCP Family Medicine; Visit Provider Nurse Practitioner
DX: M19.011 Primary osteoarthritis, right shoulder (principal); M67.813 Other specified disorders of tendon, right shoulder; M77.8 Other enthesopathies, not elsewhere classified
CPT/HCPCS: 73221

== ENCOUNTER → 2023-11-19 08:51 | Outpatient (BNVA) | payer OTHER, SELFPAY | PROVIDERS: PCP Family Medicine; Visit Provider Specialist | DX: M25.811 Other specified joint disorders, right shoulder; M19.011 Primary osteoarthritis, right shoulder; M75.31 Calcific tendinitis of right shoulder | CPT/HCPCS: 99214 ==

== ENCOUNTER → 2023-11-22 12:55 | Outpatient (BNVA) | payer OTHER, SELFPAY | PROVIDERS: PCP Family Medicine; Visit Provider Anesthesiology Pain Medicine | DX: G89.29 Other chronic pain; M70.61 Trochanteric bursitis, right hip; M75.51 Bursitis of right shoulder; M48.062 Spinal stenosis, lumbar region with neurogenic claudication; F17.290 Nicotine dependence, other tobacco product, uncomplicated; M47.816 Spondylosis without myelopathy or radiculopathy, lumbar region; M51.36 Other intervertebral disc degeneration, lumbar region; Z98.890 Other specified postprocedural states; Z87.19 Personal history of other diseases of the digestive system; Y93.9 Activity, unspecified; M43.16 Spondylolisthesis, lumbar region; M48.061 Spinal stenosis, lumbar region without neurogenic claudication | CPT/HCPCS: 99214 ==

== ENCOUNTER → 2023-12-11 14:12 | Outpatient (BNVA) | payer OTHER, SELFPAY | PROVIDERS: PCP Family Medicine; Visit Provider Anesthesiology Pain Medicine | DX: M54.16 Radiculopathy, lumbar region (principal); G89.29 Other chronic pain | CPT/HCPCS: 64483; 64484 ==

== ENCOUNTER → 2023-12-19 13:31 | Outpatient (BNVA) | payer OTHER, SELFPAY | PROVIDERS: PCP Family Medicine; Visit Provider Specialist | DX: M89.9 Disorder of bone, unspecified | CPT/HCPCS: 73560; 73565; 99214 ==

== ENCOUNTER 2024-01-01 09:32 | Outpatient (CLI) | payer OTHER, SELFPAY ==
--- NOTE | 2024-01-01 09:30 | NM_ITS ---
WS: [id number] THREE-PHASE BONE SCAN HISTORY: LEFT knee pain. COMPARISON: Radiographs 12/19/2023 Patient is is injected with 24.1 mCi Tc99m HDP intravenously. Immediate angiographic phase imaging is performed over the area of concern. Static blood pool imaging also performed. Two-hour whole-body sc intigrams performed in anterior and posterior projections. Additional large field of view imaging sub mitted as necessary. Normal angiographic and blood pool phase imaging. There is no increased uptake identified within eith er knee. 2-hour delayed imaging demonstrates a very mild uptake in the proximal tibial metaphysis, bilateral. This is symmetric. Seen best on the lateral images is additional increased uptake along the posterior tibial plateaus or possibly involving the fibular head. External to the joint space. The bony exosto sis seen involving the LEFT knee on the recent radiograph is negative. There is no increased uptake. Mild bilateral AC joint and AC joint arthropathy. There is a very subtle area of increased uptake wit hin the L5 vertebral body which is likely degenerative. Normal soft tissue uptake. There is a focal o f increased uptake in the RIGHT scrotum which is probably contamination. NM/NM bone 3 phase [id number] IMPRESSION: 1. There is mild increased uptake involving each knee centered around the tibi al plateaus and/or the fibular heads. No bony abnormality seen radiographically in these locations. Consider stress fracture and arthritis. 2. Exophytic bone lesion from the anterior distal femur is negative on all 3 p hases. Probably representing a benign osteochondroma.
== END 2024-01-01 09:33 | disposition home or self-care (01) ==
LOC: RAD 09:33
PROVIDERS: PCP Family Medicine; Visit Provider Specialist
DX: M25.562 Pain in left knee (principal)
CPT/HCPCS: 78315; A9561

== ENCOUNTER 2024-01-11 07:09 | Outpatient (CLI) | payer OTHER, SELFPAY ==
--- NOTE | 2024-01-11 07:15 | MR_ITS ---
WS: [id number] MRI LEFT FEMUR WITH AND WITHOUT CONTRAST. COMPARISON: Radiograph knee 12/19/2023 and bone scan 01/01/2024, LEFT knee radiograph 06/17/2021 Multiplanar, multisequence imaging is performed with and without contrast. MultiHance 20 mL IV. Identified on the MRI imaging is a cortical based bone lesion in the distal anterior femoral metaphys is. This is of mixed signal on all sequences but predominantly of decreased signal. There is no adjac ent fluid or periosteal reaction. Cortical based lesion extends over a width of 2.7 cm x 1.3 cm anter ior posterior. There does appear to be a an intact cap surrounding this lesion. No muscle edema. No a dditional abnormalities. Also there is no significant enhancement. No adenopathy. MR/MR femur LT wo/w con [id number] IMPRESSION: Cortical based bone lesion involving the distal anterior femoral metaphysis whi ch has been previously described by radiograph and bone scan imaging. Appears n onaggressive. No adjacent edema and no significant enhancement. 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 If this lesion is growing or painfu l consideration for chondrosarcoma is necessary. Note that this lesion was present on a prior radiograph from 06/17/2021 without significant increase in size. The cartilage cap may be slightly less obvious b ut there is no periosteal reaction. If this is a painful lesion surgical excisi on should be considered.
[2024-01-11] MEDS: gadobenate dimeglumine 20 mL vial IV (08:02)
== END 2024-01-11 07:10 | disposition home or self-care (01) ==
LOC: RAD 07:09
PROVIDERS: PCP Family Medicine; Visit Provider Specialist
DX: M25.562 Pain in left knee (principal); M89.8X5 Other specified disorders of bone, thigh
CPT/HCPCS: 73720; A9577

== ENCOUNTER 2024-01-16 14:00 | Outpatient (CLI) | payer OTHER, SELFPAY ==
--- NOTE | 2024-01-16 14:00 | CTR_ITS ---
PROCEDURE INFORMATION: Exam: CT Left Lower Extremity Without Contrast; Thigh Exam date and time: 01/16/2024 2:11 PM Age: 58 years old Clinical indication: Abnormal findings; Abnormal imaging study; Left femur growth on xray; Additional info: Pain, distal femur TECHNIQUE: Imaging protocol: CT of the left lower extremity without contrast was performed. Exam focused on the thigh. Radiation optimization: All CT scans at this facility use at least one of these dose optimization techniques: automated exposure control; mA and/or kV adjustment per patient size (includes targeted exams where dose is matched to clinical indication); or iterative reconstruction. COMPARISON: MR femur LT wo/w con [id number] 01/11/2024 7:24 AM RADIATION DOSE METRICS: Total DLP (mGy-cm): 962.59 FINDINGS: Bones/joints: As previously described, there is an unorganized focus of osseous proliferation along the anterior cortical surface of the distal femoral metaphysis. There is a above intermediate density along the anterior aspect of the lesion measuring 3 mm in thickness (for example, image 34 of series 11). No aggressive features. The lesion is grossly stable in comparison to prior radiographs from May 2021. No evidence of acute pathologic fracture. There may be chronic dynamic abutment of the lesion with the superior pole of the patella. A chronic nondisplaced fracture through the anterior aspect of the lesion would be difficult to exclude given the extensive irregularity along the surface of the lesion (for example, images 29-31 of series 8). No significant knee joint effusion. Left femur is otherwise intact. Mild osteoarthritis of the left hip. There are gluteal insertional trochanteric enthesophytes. Soft tissues: No gross soft tissue abnormality. No evidence of fluid collection or hematoma. Muscles and tendons are grossly intact. Enlarged prostate measuring 5 cm. Consider correlation with serum laboratory findings and outpatient urologic evaluation. There is bladder wall thickening. CT/CT femur LT wo con* [id number] IMPRESSION: 1. Nonaggressive surface lesion along the anterior aspect of the distal femoral metaphysis, the histologic identity of which is not clearly discernible, though considerations include bizarre parosteal osteochondromatous proliferation and sessile osteochondroma. No significant appreciable change in the lesions since 2020. Given its location, there may be chronic abutment with the superior pole of the patella, which may be symptomatic. Consider surgical evaluation as clinically warranted. 2. Enlarged prostate measuring 5 cm. Consider correlation with serum laboratory findings and outpatient urologic evaluation.
== END 2024-01-16 14:01 | disposition home or self-care (01) ==
LOC: RAD 14:00
PROVIDERS: PCP Family Medicine; Visit Provider Specialist
DX: M89.8X5 Other specified disorders of bone, thigh (principal); M76.9 Unspecified enthesopathy, lower limb, excluding foot; N40.0 Benign prostatic hyperplasia without lower urinary tract symptoms
CPT/HCPCS: 73700

== ENCOUNTER → 2024-02-18 09:39 | Outpatient (BNVA) | payer OTHER, SELFPAY | PROVIDERS: PCP Family Medicine; Visit Provider Specialist | DX: M89.9 Disorder of bone, unspecified (principal); M17.12 Unilateral primary osteoarthritis, left knee; Z09 Encounter for follow-up examination after completed treatment for conditions other than malignant neoplasm | CPT/HCPCS: 99214 ==

== ENCOUNTER → 2024-02-22 08:54 | Outpatient (BNVA) | payer OTHER, SELFPAY | PROVIDERS: PCP Family Medicine; Visit Provider Specialist | DX: M19.011 Primary osteoarthritis, right shoulder (principal); M75.31 Calcific tendinitis of right shoulder; Z71.89 Other specified counseling | CPT/HCPCS: 20610; J1100; J2795; J3301 ==

== ENCOUNTER → 2024-04-14 15:39 | Outpatient (BNVA) | payer OTHER, SELFPAY | PROVIDERS: PCP Family Medicine; Visit Provider Nurse Practitioner | DX: M77.12 Lateral epicondylitis, left elbow (principal); R20.2 Paresthesia of skin | CPT/HCPCS: 20600; 73080; 99214; J3301 ==

== ENCOUNTER → 2024-06-06 09:00 | Outpatient (BNVA) | payer OTHER, SELFPAY | PROVIDERS: PCP Family Medicine; Visit Provider Specialist | DX: M19.011 Primary osteoarthritis, right shoulder (principal); M75.31 Calcific tendinitis of right shoulder; M25.811 Other specified joint disorders, right shoulder; Z71.89 Other specified counseling | CPT/HCPCS: 20610; J1100; J2795; J3301 ==

== ENCOUNTER → 2024-06-18 08:00 | Outpatient (BNVA) | payer OTHER, SELFPAY | PROVIDERS: PCP Family Medicine; Referring Provider Nurse Practitioner; Visit Provider Specialist | DX: M77.12 Lateral epicondylitis, left elbow (principal); R20.2 Paresthesia of skin; G56.22 Lesion of ulnar nerve, left upper limb | CPT/HCPCS: 95910 ==

== ENCOUNTER → 2024-07-04 08:00 | Outpatient (BNVA) | payer OTHER, SELFPAY | PROVIDERS: PCP Family Medicine; Visit Provider Nurse Practitioner | DX: M77.12 Lateral epicondylitis, left elbow (principal); G56.22 Lesion of ulnar nerve, left upper limb | CPT/HCPCS: 20600; 20605; 99214; J3301 ==

== ENCOUNTER 2024-07-17 13:31 | Emergency (ER) | payer OTHER, SELFPAY ==
--- NOTE | 2024-07-17 13:38 | XR_ITS ---
WS: [id number] Exam: XR shoulder RT min 2V* [id number] Date/Time of Exam: 07/17/2024 1:38 PM Reason For Exam: fall Comparison 10/10/2023. Signs of calcific tendinitis and/or bursitis with calcification in the soft tissues along the humeral head. No fracture. Mild AC joint DJD. Mild DJD at the glenohumeral joint. XR/XR shoulder RT min 2V* [id number] IMPRESSION: 1. Findings suggest calcific tendinitis and/or bursitis. Mild degenerative gutierrez ges.
[2024-07-17 13:46] VITALS: BP 151/90; PULSE 98; TEMP 36.9; O2SAT 97; BMI 33.9
--- NOTE | 2024-07-17 13:55 | W.ED.EXTPRO ---
HPI - Extremity Problem General: Chief complaint: Extremity Injury, Upper Stated complaint: fell last night, pain shoulder R Time Seen by Provider: 07/17/24 13:52 History of Present Illness: 59-year-old man who presents emergency room after had a fall and hurt his right shoulder. He fell yesterday. Pain in the shoulder is worse. He says he is been having some chronic issues with the shoulder and follows with Dr. Fontaine who is going to do surgery on it after the beginning of the year. But pain is much worse now. Very tender to palpation on the lateral shoulder. No other injuries with this fall. He said he fell about a week ago and has an abrasion on top of his head. Related Data Home Medications Medication Instructions Recorded Confirmed metoprolol succinate 50 mg 50 mg PO DAILY 11/17/22 07/04/24 tablet,extended release 24 hr Previous Rx's Medication Instructions Recorded chlorzoxazone 500 mg tablet 250 mg (1/2 x 500 mg) PO TID PRN 04/14/24 muscle spasm #21 tabs left tennis elbow strap #1 ea 04/14/24 diclofenac sodium 50 mg 50 mg PO BID PRN pain #14 tabs 07/17/24 tablet,delayed release hydrocodone 5 mg-acetaminophen 325 1 tab PO Q8H PRN pain #14 tabs 07/17/24 mg tablet polyethylene glycol 3350 17 17 g PO DAILY #510 grams 07/17/24 gram/dose oral powder (Miralax) Allergies Allergy/AdvReac Type Severity Reaction Status Date / Time penicillin G Allergy Mild ADR-Abdominal Verified 07/17/24 13:50 Pain Review of Systems Narrative: Constitutional symptoms: Negative except as documented in HPI. Skin symptoms: Negative except as documented in HPI. Eye symptoms: Negative except as documented in HPI. ENMT symptoms: Negative except as documented in HPI. Respiratory symptoms: Negative except as documented in HPI. Cardiovascular symptoms: Negative except as documented in HPI. Gastrointestinal symptoms: Negative except as documented in HPI. Genitourinary symptoms: Negative except as documented in HPI. Musculoskeletal symptoms: Negative except as documented in HPI. Neurologic symptoms: Negative except as documented in HPI. Psychiatric symptoms: Negative except as documented in HPI. Endocrine symptoms: Negative except as documented in HPI. FOR[facility]LY [facility] ED PFSH: Medical History Lateral epicondylitis of left elbow Left elbow pain Positive Tinel's sign Greater trochanteric bursitis of right hip Hypertension Chronic back pain Lumbar stenosis with neurogenic claudication Chronic right shoulder pain Social History Smoking and tobacco/nicotine status: current every day tobacco/nicotine user Alcohol intake: never Substance/Drug Use: never Physical Exam Narrative: EXAM NARRATIVE: General: Alert, no acute distress. Skin: warm and dry Head: Normocephalic Neck: Trachea midline Eye: Extraocular movements are intact. Ears, nose, mouth and throat: Oral mucosa moist Respiratory: Respirations are non-labored Musculoskeletal: No obvious deformity of the right shoulder, he does have pain with palpation. No redness. Limitation in range of motion secondary to pain. Neurological: Alert and oriented, No focal neurological deficit observed. Psychiatric: Cooperative, appropriate mood & affect. Course Vital Signs: Vital signs: Vital Signs Temperature 98.4 F 07/17/24 13:46 Pulse Rate 98 07/17/24 13:46 Blood Pressure 121/86 07/17/24 14:02 Pulse Oximetry 95 07/17/24 14:02 Oxygen Delivery Me thod Room Air 07/17/24 14:02 MDM - Extremity (Nontraumatic) Medical Decision Making X-ray of the right shoulder: No changes from previous. He does have some degenerative changes in bursitis. This is known. No acute fractures. This was reviewed and interpreted by myself the emergency room physician. I also reviewed the radiology report. Assessment and plan: Shoulder injury - Discharged home - Discussed plan with patient. Answered any questions. - Evaluation and treatment of this problem were appropriate in the emergency setting. Lab Data Radiology Impressions Shoulder X-Ray 07/17/24 13:38 IMPRESSION: 1. Findings suggest calcific tendinitis and/or bursitis. Mild degenerative changes. All radiology interpretation(s) finalized by discharge Discharge Plan Discharge Patient Disposition: Home Clinical Impression: Bursitis of right shoulder, Right shoulder injury Condition: Stable Prescriptions: New hydrocodone-acetaminophen 5-325 mg tablet 1 tab PO Q8H PRN (Reason: pain) Qty: 14 0RF Rx Instructions: Take 1/2 to 1 tab every 8 hours as needed for pain diclofenac sodium 50 mg tablet,delayed release (DR/EC) 50 mg PO BID PRN (Reason: pain) Qty: 14 0RF polyethylene glycol 3350 [Miralax] 17 gram/dose powder 17 g PO DAILY Qty: 510 0RF Rx Instructions: Take 1 scoop daily while taking pain medications. No Action (DME) left tennis elbow strap See Rx Instructions .Route .MEDSUPPLY Qty: 1 0RF Rx Instructions: As directed chlorzoxazone 500 mg tablet 250 mg PO TID PRN (Reason: muscle spasm) Qty: 21 0RF metoprolol succinate 50 mg Tablet Extended Release 24 Hr 50 mg PO DAILY Discharge Orders: Discharge ED (Routine); Ordered 07/17/24 Ordered By: Ana Delaney Referrals: Adina Fontaine MD [Physician] - 4-7 days Ema Sutton MD [Primary Care Provider] - Discharge Diet: Usual diet Discharge Activity: Increase activity as tolerated Patient Instructions: Opioid Safety, Pain Management Activity Restrictions/Additional Instructions: Thank you for choosing [facility] for your healthcare needs today. Please realize this is an emergency room and that we are providing you with a medical screening exam and this may not be complete and all inclusive of all the testing and or work up that you may need to determine your ailment or severity of your illness. You have been screened and evaluated and felt safe for discharge. Health conditions do change or evolve sometimes and as such it is important that you follow up with your Primary Doctor to be re checked, 3-5 days is a general good time frame for follow up. You are always welcome to return to the ED for re assessment if your symptoms are worsening or you have new concerns Coding Level of Care Code ED Superintendent House for Eddie May
[2024-07-17 14:02] VITALS: BP 121/86; O2SAT 95
--- NOTE | 2024-07-17 14:17 | PC.PHAR ---
patient is from [place], sent fax at 215pm
[2024-07-17 15:15] VITALS: BP 123/89; PULSE 88; O2SAT 98
== END 2024-07-17 15:16 | disposition home or self-care (01) ==
PROVIDERS: Emergency Provider Emergency Medicine; PCP Family Medicine
DX: M75.51 Bursitis of right shoulder (principal); Z72.0 Tobacco use
CPT/HCPCS: 73030; 99283

== ENCOUNTER → 2024-08-29 09:43 | Outpatient (BNVA) | payer OTHER, SELFPAY | PROVIDERS: PCP Family Medicine; Visit Provider Nurse Practitioner | DX: G56.22 Lesion of ulnar nerve, left upper limb (principal); M77.12 Lateral epicondylitis, left elbow | CPT/HCPCS: 99214 ==

== ENCOUNTER → 2024-09-04 13:27 | Outpatient (BNVA) | payer OTHER, SELFPAY | PROVIDERS: PCP Family Medicine; Visit Provider Specialist | DX: M19.011 Primary osteoarthritis, right shoulder (principal); M25.522 Pain in left elbow; M25.811 Other specified joint disorders, right shoulder; M75.31 Calcific tendinitis of right shoulder; Z71.89 Other specified counseling | CPT/HCPCS: 20610; 36415; 80053; 81001; 85025; J1100; J2795; J3301 ==

== ENCOUNTER → 2024-09-23 06:29 | Day surgery (SDC) | payer OTHER, SELFPAY ==
[2024-09-23 06:40] VITALS: BP 122/88; PULSE 83; RESP 18; TEMP 36.1; O2SAT 95
[2024-09-23] MEDS: sodium chloride 0.9% 1,000 ML 30 ML IV (06:49)
[2024-09-23] MEDS: acetaminophen 1,000 MG/100 ML PIGGYBACK 400 MG IV (06:54)
[2024-09-23] MEDS: CELEcoxib 200 mg Capsule 400 MG PO (06:55)
[2024-09-23] MEDS: gabapentin 300 mg Capsule PO (06:55)
--- NOTE | 2024-09-23 07:32 | PC.NURSE ---
pt arrived and was prepared for surgery Dr. Fontaine arrived to talk with patient. During this discussion it was determined that the surgery scheduled at this time was not needed and that further discussion would take place on how to proceed with his care. Fluids were D/C and patient was sent home.
--- NOTE | 2024-09-23 08:24 | PM.MISC ---
Miscellaneous Note Purpose of Documentation: Cancellation of surgery Note: Today, the patient presented for cubital tunnel release, but upon presentation, he denied having recent pain into his fingers or any other recent symptoms consistent with cubital tunnel syndrome. Nerve conduction studies are positive for cubital tunnel syndrome, and he did have radiation of pain down into his arm. Previously, he has had injection for tennis elbow, and the first 1 was beneficial, but he stated the second 1 did nothing. At this point, given the fact that he is complaining entirely of radial sided pain at the elbow which is aggravated by resisted wrist extension, I advised him that I did not think that we could accomplish resolution of his current presenting symptoms. At that point, he wished to postpone this surgery or perhaps cancel completely.Today, but upon presentation, he denied having recent pain into his fingers or any other recent symptoms consistent with cubital tunnel syndrome. Nerve conduction studies are positive for cubital tunnel syndrome, and he did have radiation of pain down into his arm. Previously, he has had injection for tennis elbow, and the first 1 was beneficial, but he stated the second 1 did nothing. At this point, given the fact that he is complaining entirely of radial sided pain at the elbow which is aggravated by resisted wrist extension, I advised him that I did not think that we could accomplish resolution of his current presenting symptoms. At that point, he wished to postpone this surgery or perhaps cancel completely.
== END ==
LOC: OR 06:31
PROVIDERS: PCP Family Medicine; Visit Provider Specialist
PROC: (CPT 64718; principal; 2024-09-23 08:00)
DX: G56.20 Lesion of ulnar nerve, unspecified upper limb (principal); Z53.8 Procedure and treatment not carried out for other reasons
CPT/HCPCS: J0131; J7030

== ENCOUNTER → 2024-10-16 14:33 | Outpatient (BNVA) | payer OTHER, SELFPAY | PROVIDERS: PCP Family Medicine; Visit Provider Specialist | DX: M19.011 Primary osteoarthritis, right shoulder (principal); M25.811 Other specified joint disorders, right shoulder; M75.31 Calcific tendinitis of right shoulder | CPT/HCPCS: 99214 ==

== ENCOUNTER 2024-10-21 13:22 | Outpatient (CLI) | payer OTHER, SELFPAY ==
[2024-10-21 14:41] LABS: Prostate Specific Antigen Scr 0.62 ng/mL (0-4)
== END 2024-10-21 13:23 | disposition home or self-care (01) ==
LOC: LAB 13:26
PROVIDERS: PCP Family Medicine; Visit Provider Urology
DX: Z12.5 Encounter for screening for malignant neoplasm of prostate (principal)
CPT/HCPCS: 36415; G0103

== ENCOUNTER 2024-12-03 14:28 | Outpatient (CLI) | payer OTHER, SELFPAY ==
[2024-12-03 15:35] LABS: Prostate Specific Antigen Scr 0.38 ng/mL (0-4)
[2024-12-03 15:52] LABS: Bacteria Urine None Seen /hpf; Hyaline Casts Urine 0.81 /lpf; RBC Urine 0-2 /hpf (0-2); Squamous Epithelial Cell Urine 0-5 /hpf (0-5); WBC Urine 0-5 /hpf (0-5)
[2024-12-03 16:03] LABS: Add Urine Microscopic? YES; Bilirubin Urine Neg (Negative); Blood Urine Neg (Negative); Glucose Urine UA Norm (Normal); Ketones Urine 1+ (Negative); Leukocyte Esterase Urine Negative (Negative); Nitrate Urine Negative (Negative); Protein Urine Neg (Negative); Specific Gravity, Urine 1.015 (1.005-1.030); Urine Appearance Clear (CLEAR); Urine Color Yellow (Yellow); Urobilinogen Urine 4 mg/dL (Negative); pH Urine 7 (5-7)
== END 2024-12-03 14:29 | disposition home or self-care (01) ==
LOC: LAB 14:35
PROVIDERS: Nurse Practitioner; Visit Provider Urology
DX: Z12.5 Encounter for screening for malignant neoplasm of prostate (principal); G56.22 Lesion of ulnar nerve, left upper limb
CPT/HCPCS: 36415; 81001; G0103

== ENCOUNTER 2024-12-09 11:39 | Outpatient (RCR) | payer OTHER, SELFPAY | END 2024-12-24 23:59 | disposition home or self-care (01) | LOC: SPT 11:39 | PROVIDERS: Visit Provider Family Medicine | DX: M25.522 Pain in left elbow (principal) | CPT/HCPCS: 20560; 97110; 97161; 97530 ==

== ENCOUNTER 2024-12-11 07:52 | Outpatient (CLI) | payer OTHER, SELFPAY ==
--- NOTE | 2024-12-11 07:56 | MR_ITS ---
WS: [id number] MRI RIGHT SHOULDER ARTHROGRAM TECHNIQUE: Sagittal T2, coronal T1, T2 and proton density imaging. Axial gradient PDE imaging. Post arthrogram imaging. CLINICAL INFORMATION: M25.811 - Other specified joint disorders, right shoulder COMPARISON: 10/31/2023 FINDINGS: Moderate to advanced arthritis of the AC joint with fluid and edema. Slight subacromial spurring. Slight impingement of the distal supraspinatus. Small amount of subacromial and subdeltoid fluid. Tiny insertional tear distal supraspinatus. This appears new from previous. Tendinopathy supraspinatus. Inf raspinatus is intact. Normal teres minor. Normal subscapularis tendon. Calcific tendinitis involving the distal supraspinatus and subscapularis similar to previous. Tiny biceps tendon in the bicipital groove unchanged from previous. Intra- articular biceps tendon appears intact. Moderate degenerative narrowing of the glenohumeral articulation. Degenerative fraying of the glenoid labrum. Biceps labral anchor appears intact. Middle glenohumeral ligament appears intact. MR/MR shoulder RT wo/w con [id number] IMPRESSION: 1. Moderate to advanced arthritis AC joint. 2. Tiny insertional tear distal supraspinatus with tendinopathy. 3. Rotator cuff is otherwise intact with calcific tendinitis. 4. Diminutive biceps tendon within the bicipital groove. Intra-articular bicep s tendon appears intact. 5. Degenerative fraying of the glenoid labrum.
--- NOTE | 2024-12-11 08:00 | IR_ITS ---
WS: [id number] SHOULDER ARTHROGRAM RIGHT Fluoroscopic guided right shoulder arthrogram CLINICAL INFORMATION: M75.31 - Calcific tendinitis of right shoulder PROCEDURE: The procedure including risks, benefits and complications were discussed with the patient, who agreed to proceed. Using sterile technique, the patient was prepped and draped in the usual sterile fashion. After 1% lidocaine injection using fluoroscopic guidance, a 22-gauge spinal needle was advanced into the glenohumeral joint. Approximately 13 ml of a solution containing 10 ml normal saline, 5 ml Omnipaque 240, 5 ml 1% lidocaine, and 0.1 ml gadolinium was administered. No immediate complications. FLUOROSCOPY TIME: 0min [id number] # of spot films: 2 IR/IR arthrogram shoulderRT [id number] IMPRESSION: Uncomplicated fluoroscopic-guided right shoulder arthrogram. MRI to follow.
[2024-12-11] MEDS: gadobenate dimeglumine 20 mL vial IV (09:22)
[2024-12-11] MEDS: iohexol 240 mg/mL 50 mL Btl 20 ML INTRA-ARTI (09:23)
== END 2024-12-11 07:53 | disposition home or self-care (01) ==
PROVIDERS: PCP Family Medicine; Visit Provider Specialist
DX: M75.31 Calcific tendinitis of right shoulder (principal); M19.011 Primary osteoarthritis, right shoulder; M25.811 Other specified joint disorders, right shoulder; R93.7 Abnormal findings on diagnostic imaging of other parts of musculoskeletal system; M67.813 Other specified disorders of tendon, right shoulder
CPT/HCPCS: 23350; 73223; 77002; A9577; J9999; Q9966

== ENCOUNTER → 2024-12-17 09:03 | Outpatient (BNVA) | payer OTHER, SELFPAY | PROVIDERS: PCP Family Medicine; Visit Provider Specialist | DX: M19.011 Primary osteoarthritis, right shoulder (principal); M25.811 Other specified joint disorders, right shoulder; M75.31 Calcific tendinitis of right shoulder | CPT/HCPCS: 73030; 99214 ==

== ENCOUNTER 2024-12-23 15:49 | Outpatient (CLI) | payer OTHER, SELFPAY ==
--- NOTE | 2024-12-23 15:58 | MR_ITS ---
WS: [id number] MRI LUMBAR SPINE NONCONTRAST TECHNIQUE: Sagittal T1, T2 and STIR imaging. Axial T1 and T2 imaging. CLINICAL INFORMATION: pain BLE COMPARISON: 05/14/2023 FINDINGS: Grade 1 anterolisthesis L4 on L5 similar to previous. 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 Mild annular bulging T12-L1 with a tiny annular fissure. L1-L2: Mild disc bulging. Mild facet arthropathy. Spinal canal and foramina are patent. L2-L3: Mild annular bulging. Small annular fissure. Slight effacement of the thecal sac. Mild facet arthropathy. Foramen are patent. L3-L4: Mild annular bulging. Mild facet arthropathy. Mild LEFT greater than RIGHT foraminal narrowing. Mild facet arthropathy. L4-L5: Grade 1 anterolisthesis L4 on L5. Moderate bilateral foraminal narrowing with small foraminal protrusions. Moderate central canal stenosis appears slightly progressed. Narrowing of the thecal sac. Facets arthropathy. Small facet effusions. L5-S1: Mild annular bulging. Slight effacement of the ventral thecal sac. Shallow RIGHT paracentral protrusion L5-S1 slightly impinges the traversing RIGHT S1 nerve root. Moderate facet arthropathy. Visualized pelvic bony structures: Normal. Paravertebral soft tissues: Normal. Small RIGHT renal cyst. MR/MR lumbar spine wo con* [id number] IMPRESSION: 1. Moderate central canal stenosis L4-5 slightly progressed compared to previo us. Grade 1 anterolisthesis. 2. Shallow RIGHT paracentral protrusion L5-S1 impinges the traversing RIGHT S1 nerve root. 3. Disc bulging T12 level with a small annular fissure. 4. Advanced facet arthropathy L4-5 with small facet effusions.
== END 2024-12-23 15:50 | disposition home or self-care (01) ==
PROVIDERS: PCP Family Medicine; Visit Provider General Practice
DX: M47.27 Other spondylosis with radiculopathy, lumbosacral region (principal); M48.061 Spinal stenosis, lumbar region without neurogenic claudication; R93.7 Abnormal findings on diagnostic imaging of other parts of musculoskeletal system; M51.34 Other intervertebral disc degeneration, thoracic region; M47.896 Other spondylosis, lumbar region; M51.35 Other intervertebral disc degeneration, thoracolumbar region; M51.369 Other intervertebral disc degeneration, lumbar region without mention of lumbar back pain or lower extremity pain; M51.26 Other intervertebral disc displacement, lumbar region; M51.379 Other intervertebral disc degeneration, lumbosacral region without mention of lumbar back pain or lower extremity pain; M47.897 Other spondylosis, lumbosacral region; N28.1 Cyst of kidney, acquired
CPT/HCPCS: 72148

== ENCOUNTER 2024-12-25 05:00 | Outpatient (RCR) | payer OTHER, SELFPAY | END 2025-01-01 15:25 | disposition home or self-care (01) | LOC: SPT 05:00 | PROVIDERS: PCP Family Medicine; Visit Provider Family Medicine | DX: M25.522 Pain in left elbow (principal) | CPT/HCPCS: 97530 ==

== ENCOUNTER → 2024-12-30 09:50 | Outpatient (BNVA) | payer OTHER, SELFPAY | PROVIDERS: PCP Family Medicine; Visit Provider Internal Medicine Rheumatology | DX: M25.50 Pain in unspecified joint (principal); Z79.899 Other long term (current) drug therapy; Z71.85 Encounter for immunization safety counseling; M06.00 Rheumatoid arthritis without rheumatoid factor, unspecified site; M89.9 Disorder of bone, unspecified | CPT/HCPCS: 36415; 80076; 82306; 82565; 83520; 85025; 85651; 86140; 86200; 86480; 86704; 86803; 87340; 99204 ==

== ENCOUNTER 2025-01-05 15:28 | Outpatient (CLI) | payer OTHER, SELFPAY ==
[2025-01-05 15:53] LABS: Basophils % 0.2 %; Eosinophils % 0.1 %; Hematocrit 39.7 % (37-53); Lymphocytes # 0.9 10^3/uL (0.8-4.8); Lymphocytes % 9.1 %; Mean Corpuscular HGB Conc 33.8 g/dL (30-55); Mean Corpuscular Hemoglobin 32.1 pg (27-33); Mean Corpuscular Volume 95.2 fl (82-101); Mean Platelet Volume 9.9 fL (7.4-10.4); Monocytes # 0.3 10^3/uL (0.2-0.9); Monocytes % 2.6 %; Neutrophils # 8.36 10^3/uL (1.8-7.7); Neutrophils % 86.3 %; Nucleated Red Blood Cells % 0 %; Platelet Count 218 10^3/cmm (157-399); Red Blood Count 4.17 10^6/uL (3.85-5.65); Red Cell Distribution Width 12.6 % (12.1-15.1); White Blood Count 9.68 10^3/uL (3.29-11.43)
[2025-01-05 16:16] LABS: Alanine Aminotransferase 23 U/L (0-41); Alkaline Phosphatase 64 U/L (40-130); Anion Gap 16.2 (5-19); Aspartate Amino Transferase 21 U/L (0-40); Blood Urea Nitrogen 15 mg/dL (8-23); Calcium 8.8 mg/dL (8.5-10.5); Carbon Dioxide 23 mmol/L (22-29); Chloride 107 mmol/L (98-107); Globulin 2.6 g/dL (1.3-4.6); Glomerular Filtration Rate 114.6 mL/min (90-130); Glucose 160 mg/dL (65-115); Osmolality Calculated 298 mOsm/kg (285-295); Potassium 4.2 mmol/L (3.5-5.1); Sodium 142 mmol/L (136-145); Total Bilirubin 0.3 mg/dL (0.15-1.2); Total Protein 6.6 g/dL (6.6-8.7)
== END 2025-01-05 15:29 | disposition home or self-care (01) ==
LOC: LAB 15:30
PROVIDERS: PCP Family Medicine; Visit Provider Nurse Practitioner
DX: G56.22 Lesion of ulnar nerve, left upper limb (principal)
CPT/HCPCS: 36415; 80053; 85025

== ENCOUNTER → 2025-01-26 11:38 | Outpatient (BNVA) | payer OTHER, SELFPAY | PROVIDERS: PCP Family Medicine; Visit Provider Nurse Practitioner | DX: M19.011 Primary osteoarthritis, right shoulder (principal); M25.811 Other specified joint disorders, right shoulder; M75.31 Calcific tendinitis of right shoulder | CPT/HCPCS: 99214 ==

== ENCOUNTER 2025-02-05 08:23 | Day surgery (SDC) | payer OTHER, SELFPAY ==
[2025-02-05] VITALS (11 sets, daily range): BP systolic 114–159; BP diastolic 68–103; PULSE 81–93; RESP 16–18; TEMP 36.1–36.3; O2SAT 90–98; BMI 35.2
[2025-02-05] MEDS: acetaminophen 1,000 MG/100 ML PIGGYBACK 400 MG IV (08:59)
[2025-02-05] MEDS: CELEcoxib 200 mg Capsule 400 MG PO (09:00)
[2025-02-05] MEDS: gabapentin 300 mg Capsule PO (09:00)
[2025-02-05] MEDS: sodium chloride 0.9% 1,000 ML 30 ML IV (09:01)
--- NOTE | 2025-02-05 09:35 | ANES.PREANE2 ---
Pre-Anesthetic Assessment Height/Weight: Height 1.83 m Weight 117.934 kg Temp Pulse Resp BP Pulse Ox O2 Del Method O2 Flow Rate 97.4 F L 81 16 148/93 98 Nasal Cannula 2 02/05/25 08:42 02/05/25 09:25 02/05/25 09:25 02/05/25 09:25 02/05/25 09:25 02/05/25 09:25 02/05/25 09:25 Operation Date: 02/05/25 10:00 Proposed Procedures p POSSIBLE Rotator Cuff Repair - Open(Right) - Adina Fontaine MD s Acromioplasty(Right) - Adina Fontaine MD s Distal Clavicle Resection(Right) - Adina Fontaine MD Familial anesthetic complications: None Was Beta Antonio taken within 24 hours: Yes Was Clonidine taken within 24 hours: N/A Last intake: Intake Last Liquid Date 02/04/25 Last Liquid Time 23:59 Last Solid Date 02/04/25 Last Solid Time 19:00 Social Tobacco and No alcohol Exam alert, oriented x 3, clear to auscultation bilaterally and regular rate & rhythm Airway Mallampati: Class IV Dentition: chipped and other (missing) CV/HEM Hypertension Neuropsych Transient Ischemic Attack Anesthetic Plan ASA status: 2 Anesthesia: General and Regional (specify below) Risk of > 500 ml blood loss (7ml/kg in children): No Medications/Allergies Home Medications ?Medication ?Instructions ?Recorded ?Confirmed ?Last Taken ?Type metoprolol succinate 50 mg 50 mg PO DAILY 11/17/22 02/04/25 02/05/25 History tablet,extended release 24 hr rosuvastatin 10 mg tablet 10 mg PO DAILY 09/17/24 02/04/25 02/04/25 History cholecalciferol (vitamin D3) 50 50 mcg PO DAILY 12/30/24 02/04/25 02/04/25 History mcg (2,000 unit) capsule tamsulosin 0.4 mg capsule 0.4 mg PO .hs 12/30/24 02/04/25 02/04/25 History prednisone 5 mg tablet 5 mg PO DAILY #90 tabs 01/28/25 02/04/25 Unknown Rx prednisone 10 mg tablet 10 mg PO DIRECTED PRN joint pain 02/04/25 02/04/25 Unknown History Allergies Allergy/AdvReac Type Severity Reaction Status Date / Time penicillin G Allergy Mild ADR-Abdominal Verified 12/30/24 10:17 Pain Current Medications Generic Name Dose Route Start Last Admin Trade Name Mathieu PRN Reason Stop Dose Admin Sodium Chloride 1,000 mls @ 30 mls/hr 02/05/25 08:45 02/05/25 09:01 Sodium Chloride 0.9% IV 02/06/25 08:44 30 mls/hr .Q24H EDGAR Administration PFSH Anesthesia Medical History Immunization counseling High risk medication use Polyarthralgia Gout Major depressive disorder Lateral epicondylitis of left elbow Left elbow pain Positive Tinel's sign Greater trochanteric bursitis of right hip Hypertension Chronic back pain Lumbar stenosis with neurogenic claudication Chronic right shoulder pain Surgical History History of umbilical hernia repair History of dental surgery Social History Smoking and tobacco/nicotine status: current some day tobacco/nicotine user (cigars) cigarettes [ Other cigarette details: smoked cig for 25+years stopped and now smokes cigars] Alcohol intake: never Substance/Drug Use: never Data Anesthesia Cardiac Studies: Stress Echocardiogram 01/23/23 Anesthesia Procedures Nerve Block Nerve Block 1: Main Anesthesia: general anesthesia Time Out Performed: Yes Consent: requested by attending/covering physician, from patient, from other, risks and benefits reviewed and patient agrees to proceed Nerve block location: interscalene (R) Anesthesia monitors applied: pulse oximetry, EKG and BP cuff Nerve block position: semi sitting Anesthetic Used: ropivicaine 0.5% (20 ml) and with decadron (4 mg) Ultrasound used to: recognize landmarks, visualize and ID brachial plexus, in supraclavicular region and visualize and ID interscalene groove Nerve Stimulator Used?: No Interscalene/Femoral BLK: 2 stimuplex 22 g needle used for position and inplane approach and visualize local anesthetic spread Injection: neg aspiration of heme Patient Tolerated Procedure: well
--- NOTE | 2025-02-05 09:56 | W.PM.OPSUD ---
Surgery/Procedure H&P Update DATE OF PROCEDURE: February 05, 2025 DATE H&P PERFORMED: 01/26/25 H&P UPDATE INFORMATION: I have reviewed H&P completed within last 30 days, I have examined patient prior to procedure, No changes to prior documentation, H&P is in [facility] EMR on date indicated and Risks and benefits of the procedure reviewed PLANNED PROCEDURE: Operation Date: 02/05/25 10:00 Proposed Procedures p POSSIBLE Rotator Cuff Repair - Open(Right) - Adina Fontaine MD s Acromioplasty(Right) - Adina Fontaine MD s Distal Clavicle Resection(Right) - Adina Fontaine MD Related Problem List Diagnoses (1) Impingement of right shoulder: (2) Arthritis of right acromioclavicular joint: (3) Calcific tendinitis of right shoulder: (4) Bursitis of right shoulder:
[2025-02-05] MEDS: ceFAZolin 2,000 mg SDV 2000 MG IVP (10:09)
[2025-02-05] MEDS: ceFAZolin 1,000 mg SDV 1000 MG IRRIGATION (11:39)
--- NOTE | 2025-02-05 12:42 | PM.OP ---
Operative Report Date of procedure: February 05, 2025 Pre-op diagnosis: Right shoulder severe impingement, acromioclavicular osteoarthritis, and bursitis Post-op diagnosis: Right shoulder severe impingement, acromioclavicular osteoarthritis, and bursitis Post-op findings: Significant impingement and changes within the acromioclavicular joint. Bursitis secondary to the impingement. No evidence of rotator cuff tear Procedure done: Right shoulder acromioplasty with distal clavicle resection and bursectomy Implants: None Specimens removed/disposition: Bone, disposed of Pathology: None Surgeon: Adina Fontaine MD Gamma Operator: Latonia Morales, nurse practitioner, who services were required for retraction, exposure, and completion of the surgical procedure Anesthesia: General (Intubated with preoperative interscalene block, ASA 2) Estimated blood loss (mL): 10 IV fluids (mL): 1,200 Complications: None Findings: As noted above Condition: stable Disposition: PACU (Then return to same-day surgery for discharge to home) Brief History: This 59-year-old gentleman presents today with complaints of severe right shoulder pain that has been present for an extended period of time. He underwent injection therapies which were initially successful but subsequently began to lose their efficacy. After discussion and evaluation with an MRI, the patient wished to proceed with operative intervention in the form of acromioplasty with distal clavicle resection and evaluation for possible rotator cuff tear. Risk complications of the surgery were discussed with the patient. Opportunity for questions was afforded. On the morning of surgery the patient again was given opportunity for discussion. Procedure: The patient was brought to the operating theater and underwent general intubated anesthesia, ASA 2 with interscalene block. The patient was placed in a beachchair position and subsequently the left upper extremity was prepped and draped in the usual fashion utilizing DuraPrep. The arm was draped free. A surgical pause was performed prior to commencement of the surgical procedure. At the time of the surgical pause, we confirmed the site and side of surgery as well as administration of appropriate preoperative antibiotics Ancef 2 g. MRI was also reviewed at that time. Following the surgical pause, an incision was made at approximately the level of the acromioclavicular joint extending across the anterolateral corner of the acromion and distally as necessary. Care was taken to avoid injury to the axillary nerve by limiting the distal extent of the incision. Dissection continued through skin and soft tissues using a scalpel. Hemostasis was obtained using electrocautery. Soft tissues were elevated off the acromion and the acromioclavicular joint. The acromioclavicular joint was exposed. A saw was then used to resect the distal clavicle without difficulty. The undersurface of the clavicle was palpated and was slightly further debrided. A power rasp was used to further smooth the area. When this was felt to be adequately resected, the wound was irrigated. Attention was then directed to closure. An acromioplasty was then accomplished using a combination of a saw and a power rasp. With this, we were able to remove the significant compression caused by the acromion. A bursal debridement was accomplished. The rotator cuff was then evaluated to look for tears. There were none. The patient was placed through full rotational range of motion. Palpation was accomplished of the rotator cuff. The shoulder was placed once again through further range of motion to assure that there was no evidence of additional rotator cuff tear following additional bursal debridement. There was no evidence of significant adhesive capsulitis. At this point, attention was directed to wound closure. The wound was irrigated and closure was accomplished with 0 Vicryl in the capsular tissues overlying the acromioclavicular joint area as well as over the acromion and down into the deltoid muscle. 2-0 Monocryl was used to close the subcutaneous tissues followed by 4-0 Monocryl subcuticular closure. This was followed by Dermabond, Steri-Strips, and OpSite. The patient was placed in a sling and was returned to the recovery room in satisfactory condition. The patient will be discharged to home to follow-up with me in the office. There were no complications and no specimens. Related Problem List Diagnoses (1) Impingement of right shoulder: (2) Arthritis of right acromioclavicular joint: (3) Bursitis of right shoulder:
[2025-02-05] MEDS: oxyCODONE 5 mg IR Tab/Cap PO (13:07)
--- NOTE | 2025-02-05 13:13 | ANE.PACU2 ---
Inpatient post-anesthesia follow up: Airway intact: Yes Vital signs: Temperature 97 F Pulse Rate 86 Respiratory Rate 18 Blood Pressure 131/68 Pulse Oximetry 94 Oxygen Delivery Me thod Room Air Oxygen Flow Rate 6 Fraction of Inspir ed Oxygen Hydration adequate: Yes Nausea and vomiting: No Pain level: 1 Mental status: Baseline
== END 2025-02-05 13:30 | disposition home or self-care (01) ==
PROVIDERS: PCP Family Medicine; Visit Provider Specialist
PROC: (CPT 23130; principal; 2025-02-05 10:00)
PROC: (CPT 23130; 2025-02-05 10:00)
PROC: (CPT 23120; 2025-02-05 10:00)
PROC: (CPT 23130; 2025-02-05 10:00)
DX: M75.41 Impingement syndrome of right shoulder (principal); M19.011 Primary osteoarthritis, right shoulder; M75.51 Bursitis of right shoulder; M75.31 Calcific tendinitis of right shoulder; I10 Essential (primary) hypertension; Z86.73 Personal history of transient ischemic attack (TIA), and cerebral infarction without residual deficits; Z79.899 Other long term (current) drug therapy; Z88.0 Allergy status to penicillin; Z72.0 Tobacco use
CPT/HCPCS: 23130; 23120; J0131; J0690; J1100; J2371; J2405; J2704; J2795; J3010; J3490; J7030; J9999

== ENCOUNTER → 2025-02-20 08:07 | Outpatient (BNVA) | payer OTHER, SELFPAY | PROVIDERS: PCP Family Medicine; Visit Provider Nurse Practitioner | DX: Z98.890 Other specified postprocedural states (principal) | CPT/HCPCS: 99024 ==

== ENCOUNTER → 2025-03-13 10:33 | Outpatient (BNVA) | payer OTHER, SELFPAY | PROVIDERS: PCP Family Medicine; Visit Provider Nurse Practitioner | DX: Z98.890 Other specified postprocedural states (principal) | CPT/HCPCS: 99024 ==

== ENCOUNTER 2025-03-16 09:55 | Outpatient (RCR) | payer OTHER, SELFPAY | END 2025-03-26 23:59 | disposition home or self-care (01) | LOC: SPT 09:55 | PROVIDERS: PCP Family Medicine; Visit Provider Nurse Practitioner | DX: M75.41 Impingement syndrome of right shoulder (principal) | CPT/HCPCS: 97110; 97161 ==

== ENCOUNTER → 2025-04-03 09:13 | Outpatient (BNVA) | payer OTHER, SELFPAY | PROVIDERS: PCP Family Medicine; Visit Provider Nurse Practitioner | DX: Z98.890 Other specified postprocedural states (principal); M25.511 Pain in right shoulder | CPT/HCPCS: 20610; 99024; 99213; J1100; J2795; J3301; J9999 ==

== ENCOUNTER 2025-06-04 14:34 | Outpatient (RCR) | payer OTHER, SELFPAY | END 2025-06-26 23:59 | disposition home or self-care (01) | LOC: SPT 14:34 | PROVIDERS: PCP Family Medicine; Visit Provider Surgery | DX: M43.16 Spondylolisthesis, lumbar region (principal); Z98.1 Arthrodesis status; M48.062 Spinal stenosis, lumbar region with neurogenic claudication; M54.16 Radiculopathy, lumbar region; M47.27 Other spondylosis with radiculopathy, lumbosacral region | CPT/HCPCS: 97110; 97161 ==

== ENCOUNTER 2025-06-27 05:00 | Outpatient (RCR) | payer OTHER, SELFPAY | END 2025-07-26 23:59 | disposition home or self-care (01) | LOC: SPT 05:00 | PROVIDERS: PCP Family Medicine; Visit Provider Surgery | DX: M75.31 Calcific tendinitis of right shoulder (principal); Z98.890 Other specified postprocedural states | CPT/HCPCS: 97110 ==

== ENCOUNTER → 2025-07-03 08:57 | Outpatient (BNVA) | payer OTHER, SELFPAY | PROVIDERS: PCP Family Medicine; Visit Provider Nurse Practitioner | DX: M19.011 Primary osteoarthritis, right shoulder (principal); M25.811 Other specified joint disorders, right shoulder; M75.31 Calcific tendinitis of right shoulder; Z98.890 Other specified postprocedural states | CPT/HCPCS: 20610; J1100; J2795; J3301; J9999 ==

== ENCOUNTER 2025-07-27 06:30 | Outpatient (RCR) | payer OTHER, SELFPAY | END 2025-08-26 23:59 | disposition home or self-care (01) | LOC: SPT 06:30 | PROVIDERS: PCP Family Medicine; Visit Provider Nurse Practitioner | DX: Z98.890 Other specified postprocedural states (principal) | CPT/HCPCS: 97110; 97161 ==